=== PATIENT | female | born 2000 | race Caucasian/White ===

== ENCOUNTER 2018-08-22 13:50 | Emergency (ER) | payer SELFPAY ==
[~2018-08-22] VITALS: Ht 149.9 cm; Wt 66.5 kg
[2018-08-22 14:02] VITALS: BP 130/82; PULSE 83; RESP 16; Ht 149.9 cm; Wt 66.5 kg
== END 2018-08-22 16:35 | disposition left against medical advice (07) ==
LOC: FTE 13:50
DX: Z53.21 Procedure and treatment not carried out due to patient leaving prior to being seen by health care provider (principal)

== ENCOUNTER 2018-08-28 12:36 | Emergency (ER) | payer OTHER ==
[~2018-08-28] VITALS: Ht 149.9 cm; Wt 65.1 kg
[2018-08-28 12:47] VITALS: Ht 149.9 cm; Wt 65.1 kg
[2018-08-28] MEDS ORDERED: SOD CHLORIDE 0.9% 1,000 ML IV STA (13:36)
[2018-08-28] MEDS ORDERED: METOCLOPRAMIDE 10 MG INJ IV ONE (14:00)
[2018-08-28 16:51] VITALS: BP 111/63; PULSE 67; RESP 20
[2018-08-28] MEDS ORDERED: PROC10TA10 PR (16:57)
--- NOTE | 2018-08-28 17:17 | ERD ---
ER Documentation Chief Complaint Chief Complaint n/v x 5 days, 8wk , no vag bleed HPI This is a 17-year-old female who presents to the emergency room with complaint of nausea and vomiting x2 weeks. This is her first . States she has had close care as she has had intractable nausea since conception. No fevers, denies bleeding. She has had some diarrhea, vomiting her antiemetic pills. Patient alert and appropriate at time of assessment. OB Dr. Cramer. ROS All systems reviewed and are negative except as per history of present illness. Medications Home Meds Active Scripts Prochlorperazine* (Prochlorperazine*) 10 Mg Tablet, 25 MG [place] BID PRN for NAUSEA AND/OR VOMITING, #20 TAB Prov:OLGA KILPATRICK FAMILY DEVELOPMENT SPECIALIST 08/28/18 Allergies Allergies: Coded Allergies: Penicillins (Verified Allergy, Unknown, 08/22/18) amoxicillin (Verified Allergy, Unknown, 08/22/18) clavulanic acid (Verified Allergy, Unknown, 08/22/18) PMhx/Soc Medical and Surgical Hx: pt denies Surgical Hx History of Surgery: No Anesthesia Reaction: No Hx Neurological Disorder: No Hx Respiratory Disorders: No Hx Cardiac Disorders: Yes (HTN) Hx Psychiatric Problems: No Hx Miscellaneous Medical Probl: No Hx Alcohol Use: No Hx Substance Use: No Hx Tobacco Use: No Smoking Status: Never smoker Physical Exam Vitals Vital Signs Date Temp Pulse Resp B/P (MAP) Pulse Ox O2 O2 Flow FiO2 Time Delivery Rate 08/28/18 98.4 67 20 111/63 100 Room Air 16:51 (79) 08/28/18 98.3 83 18 155/68 100 12:47 (97) Physical Exam Const: No acute distress Head: Atraumatic Eyes: Normal Conjunctiva, PERRL ENT: Normal External Ears, Nose and Mouth. Neck: Full range of motion. No meningismus. Resp: Clear to auscultation bilaterally Cardio: Regular rate and rhythm, no murmurs Abd: Soft, tender +RLQ tenderness- no rebound, non distended. Normal bowel sounds Skin: No petechiae or rashes, skin warm/dry Back: No midline or flank tenderness Ext: No cyanosis, or edema Neur: Awake and alert Psych: Normal Mood and Affect Result Diagram: 08/28/18 1347 08/28/18 1347 Results 24 hrs Laboratory Tests Test 08/28/18 13:45 08/28/18 13:46 08/28/18 13:47 Bedside Urine pH (LAB) 7.0 Bedside Urine Protein (LAB) Trace Bedside Urine Glucose (UA) Negative Bedside Urine Ketones (LAB) 2+ Bedside Urine Blood Negative Bedside Urine Nitrite (LAB) Negative Bedside Urine Leukocyte Esterase Negative (L Urine Color YELLOW Urine Clarity CLEAR Urine pH 7.0 Urine Specific [place] 1.016 Urine Ketones 1+ mg/dL Urine Nitrite NEGATIVE mg/dL Urine Bilirubin NEGATIVE mg/dL Urine Urobilinogen NEGATIVE mg/dL Urine Leukocyte Esterase NEGATIVE Angelica/ul Urine Hemoglobin NEGATIVE mg/dL Urine Glucose NEGATIVE mg/dL Urine Total Protein NEGATIVE mg/dl White Blood Count 8.0 10^3/ul Red Blood Count 4.93 10^6/ul Hemoglobin 13.1 g/dl Hematocrit 40.5 % Mean Corpuscular Volume 82.2 fl Mean Corpuscular Hemoglobin 26.6 pg Mean Corpuscular 32.3 g/dl Hemoglobin Concent Red Cell Distribution Width 15.9 % Platelet Count 295 10^3/UL Mean Platelet Volume 10.4 fl Immature Granulocytes % 0.500 % Neutrophils % 68.4 % Lymphocytes % 22.8 % Monocytes % 7.7 % Eosinophils % 0.5 % Basophils % 0.1 % Nucleated Red Blood Cells % 0.0 /100WBC Immature Granulocytes # 0.040 10^3/ul Neutrophils # 5.5 10^3/ul Lymphocytes # 1.8 10^3/ul Monocytes # 0.6 10^3/ul Eosinophils # 0.0 10^3/ul Basophils # 0.0 10^3/ul Nucleated Red Blood Cells # 0.0 10^3/ul Sodium Level 138 mmol/L Potassium Level 3.7 mmol/L Chloride Level 102 mmol/L Carbon Dioxide Level 22 mmol/L Anion Gap 14 Blood Urea Nitrogen 5 mg/dl Creatinine 0.48 mg/dl Est Glomerular Filtrat > 60 mL/min Rate mL/min Glucose Level 85 mg/dl Calcium Level 9.7 mg/dl Total Bilirubin 0.5 mg/dl Direct Bilirubin 0.00 mg/dl Indirect Bilirubin 0.5 mg/dl Aspartate Amino 25 IU/L Transf (AST/SGOT) Alanine 17 IU/L Aminotransferase (ALT/SGPT) Alkaline Phosphatase 72 IU/L Total Protein 8.3 g/dl Albumin 4.7 g/dl Globulin 3.60 g/dl Albumin/Globulin Ratio 1.30 Beta HCG, Quantitative 07646.0 mIU/ml Current Medications Medications Dose Sig/Gurmeet Start Time Status Last (Trade) Ordered Route PRN Stop Time Admin Dose Reason Admin Sodium 1,000 ml @ Q1H STAT 08/28/18 DC 08/28/18 Chloride 1,000 mls/hr IV 13:36 08/28/18 13:50 14:35 10 mg ONCE ONCE 08/28/18 DC 08/28/18 Metoclopramid IV 14:00 08/28/18 13:49 e HCl 14:01 (Reglan) Procedures/MDM This is a 17-year-old female patient who presents to the emergency room with complaint of continued nausea and vomiting since conception of her first . She is denying concerning complaints for miscarriage such as bleed ing, cramping, severe pain. Primary concern is that she is unable to keep down solid food or liquids. The patient was stable throughout ED course. I kept the patient informed of laboratory and diagnostic imaging results throughout the ED course. DIAGNOSTIC IMAGING: FINDINGS: No blind ending tubular structure is seen. The appendix is not definitely visualized. No lymphadenopathy. No free fluid. IMPRESSION: Appendix not definitely visualized. Therefore, the diagnosis of appendicitis cannot be confidently included nor excluded. FINDINGS: A single intrauterine gestation is present. No evidence of extrauterine gestation. Mean sac diameter: 2.8 cm [place]-rump length: 1.31 cm heart rate: 163 Beats per minute Minimal subchorionic hemorrhage. Normal appearing ovaries. Free fluid: None. IMPRESSION: Single intrauterine gestation with an estimated gestational age of 7 weeks 5 days by ultrasound criteria. Minimal subchorionic hemorrhage. Read by radiologist. MEDICATIONS GIVEN: Normal saline 0.9% 1L, Reglan 10mg IV Patient tolerated medication well with no adverse reactions. Patient reported improvement nausea symptoms and overall sense of well-being after saline and Reglan. P.o. challenge successful. Patient able to consume full glass of water without any nausea or vomiting. Reassessment of vital signs show blood pressure within normal range. Patient states she feels better and is comfortable going home for follow-up with her irrigationist. She has been evaluated for dehydration, compromised , other abdominal etiology such as appendicitis, ovarian torsion, ruptured ovarian cyst, ectopic . Patient has been diagnosed with hyperemesis gravidarum as ultrasound is reassuring for progressing IUP, lab work does not indicate severe dehydration, anemia, infection. Ultrasounds to abdomen did not show any intra- abdominal abnormalities. Pain to right lower quadrant resolved after hydration and Reglan. Due to patient's pain and right lower quadrant ultrasound to examine for appendicitis was performed. The appendix was not visualized. Low suspicion for appendicitis as patient's pain resolved with ED treatment, no fevers, no longer with nausea or vomiting. Long discussion had with patient regarding hydration, nausea prevention, red flags and signs and symptoms to return immediately to the emergency department. She was provided with all diagnostic reports for follow-up with irrigationist. Departure Diagnosis: Primary Impression: Hyperemesis gravidarum before end of 22 week gestation with de... Condition: Stable Patient Instructions: Hyperemesis Gravidarum (Severe Morning Sickness) Additional Instructions: Thank you very much for allowing us to participate in your care. Your health and safety is our top priority at [facility]. Call your primary care doctor TOMORROW for an appointment during the next 2-3 days and bring all the information and medications prescribed. Have prescriptions filled and follow precisely the directions on the label. If the symptoms get worse and your provider is unavailable, return to the Emergency Department immediately. USE OF DICLEGIS: 2 PILLS AT TIME OF BED, IF THAT IS NOT EFFECTIVE, TAKE 2 PILLS AT BEDTIME AND ADD 1 IN AM, INCREASE TO 2 AT BEDTIME, 1 IN MORNING, 1 IN AFTERNOON IF NEEDED. USE [place] CHEWS NEEDED FOR NAUSEA. HAVE FREQUENT SIPS OF WATER. FREQUENTLY EAT SMALL MEALS. USE PROCHLORPERAZINE SUPPOSITORY NEEDED FOR UNRELENTING NAUSEA OR WITH VOMITING. RETURN TO THE ED FOR DEHYDRATION, NAUSEA, VOMITING, DIARRHEA FOLLOW-UP WITH YOUR OB IN 2-3 DAYS, BRING DIAGNOSTIC RESULTS AND NEW PRESCRIPTION. OLGA KILPATRICK NP Aug 28, 2018 17:17
== END 2018-08-28 17:16 | disposition home or self-care (01) ==
LOC: FTE 12:36
DX: O21.0 Mild hyperemesis gravidarum (principal); R10.2 Pelvic and perineal pain; O10.011 Pre-existing essential hypertension complicating pregnancy, first trimester; Z3A.01 Less than 8 weeks gestation of pregnancy
CPT/HCPCS: 36415; 76705; 76801; 80053; 81003; 84702; 85025; 96374; J2765; J7030; Z7502

== ENCOUNTER 2018-09-07 14:08 | Emergency (ER) | payer OTHER ==
[~2018-09-07] VITALS: Wt 64.0 kg
[~2018-09-07 14:08] MED LIST: PROC10TA10 PR
[2018-09-07 14:11] VITALS: BP 126/70; PULSE 68; RESP 18
[2018-09-07] MEDS ORDERED: SOD CHLORIDE 0.9% 1,000 ML IV STA (15:42)
[2018-09-07] MEDS ORDERED: METOCLOPRAMIDE 10 MG INJ IV ONE (16:00)
--- NOTE | 2018-09-07 16:54 | ERD ---
ER Documentation Chief Complaint Chief Complaint VAG BLEEDING SINCE THIS AM , 9 WKS PREG, NAUSEA AND VOMITING. FOR A FEW DAY HPI This is a 17-year-old female, presents at roughly 9 weeks with complaints of having a vaginal bleeding episode this morning. Patient states that she went to urinate she noticed blood. Patient is unsure if the blood was coming from the vagina or the urethra. Admits to having nausea with multiple episodes of nonbilious nonbloody vomiting. Patient states that she is currently on antibiotics prescribed by her MEDICAL ATTENDANT for a UTI. patient is unsure what antibiotic she is on. Patient saw her MEDICAL ATTENDANT specialist earlier today and was sent to the emergency room to get IV fluids. Patient's OB is lorenzo kan at [facility]. Denies hematemesis, diarrhea, con stipation, dysuria, hematuria, dizziness, lightheadedness, headache and all other symptoms. ROS All systems reviewed and are negative except as per history of present illness. Medications Home Meds Active Scripts Prochlorperazine* (Prochlorperazine*) 10 Mg Tablet, 25 MG [place] BID PRN for NAUSEA AND/OR VOMITING, #20 TAB Prov:OLGA KILPATRICK FIELD APPLICATION ENGINEER 08/28/18 Allergies Allergies: Coded Allergies: Penicillins (Verified Allergy, Unknown, 08/22/18) amoxicillin (Verified Allergy, Unknown, 08/22/18) clavulanic acid (Verified Allergy, Unknown, 08/22/18) PMhx/Soc Medical and Surgical Hx: pt denies Medical Hx, pt denies Surgical Hx History of Surgery: No Anesthesia Reaction: No Hx Neurological Disorder: No Hx Respiratory Disorders: No Hx Cardiac Disorders: Yes (HTN) Hx Psychiatric Problems: No Hx Miscellaneous Medical Probl: No Hx Alcohol Use: No Hx Substance Use: No Hx Tobacco Use: No Smoking Status: Never smoker Physical Exam Vitals Vital Signs Date Temp Pulse Resp B/P (MAP) Pulse Ox O2 O2 Flow FiO2 Time Delivery Rate 09/07/18 98.3 68 18 126/70 98 14:11 (88) Physical Exam Physical Exam Vitals signs: Reviewed by me. General: Well developed, well nourished, in no acute distress. Patient is awake and alert. Head: Normocephalic, atraumatic. Eyes: Normal conjunctiva, Pupils PERRLA, EOM intact grossly ENT: Pharynx is clear, Moist mucous membranes, external ears, nose and mouth normal Neck: Supple, no masses, lymphadenopathy or JVD Respiratory: Clear to auscultation bilaterally with no wheezing, rhonchi, rales, no distress Cardiovascular: RRR, no murmurs, rubs, or gallops Abdominal: , soft, no peritoneal signs, no rigidity, no surgical abd omen, bowel sounds present all 4 quadrants, nontender light deep palpation all 4 quadrants, no rebound tenderness, McBurney's point nontender Neurologic: Alert and oriented, moving all extremities, normal speech, no focal weakness, no cerebellar signs. Normal mentation Skin: warm and dry, No rash Psych: Normal mood Result Diagram: 09/07/18 1633 09/07/18 1633 Results 24 hrs Laboratory Tests Test 09/07/18 15:59 09/07/18 16:32 09/07/18 16:33 POC Beta HCG, Qualitative POSITIVE Urine Color YELLOW Urine Clarity SLIGHTLY CLOUDY Urine pH 6.0 Urine Specific [place] 1.026 Urine Ketones 2+ mg/dL Urine Nitrite NEGATIVE mg/dL Urine Bilirubin NEGATIVE mg/dL Urine Urobilinogen 1+ mg/dL Urine Leukocyte Esterase NEGATIVE Angelica/ul Urine Microscopic RBC 2 /HPF Urine Microscopic WBC 2 /HPF Urine Squamous Epithelial Cells MODERATE /HPF Urine Mucus MANY /HPF Urine Hemoglobin NEGATIVE mg/dL Urine Glucose NEGATIVE mg/dL Urine Total Protein NEGATIVE mg/dl White Blood Count 10.8 10^3/ul Red Blood Count 4.63 10^6/ul Hemoglobin 12.6 g/dl Hematocrit 37.9 % Mean Corpuscular Volume 81.9 fl Mean Corpuscular Hemoglobin 27.2 pg Mean Corpuscular 33.2 g/dl Hemoglobin Concent Red Cell Distribution Width 15.5 % Platelet Count 292 10^3/UL Mean Platelet Volume 10.1 fl Immature Granulocytes % 0.500 % Neutrophils % 74.6 % Lymphocytes % 18.5 % Monocytes % 5.9 % Eosinophils % 0.3 % Basophils % 0.2 % Nucleated Red Blood Cells % 0.0 /100WBC Immature Granulocytes # 0.050 10^3/ul Neutrophils # 8.1 10^3/ul Lymphocytes # 2.0 10^3/ul Monocytes # 0.6 10^3/ul Eosinophils # 0.0 10^3/ul Basophils # 0.0 10^3/ul Nucleated Red Blood Cells # 0.0 10^3/ul Sodium Level 138 mmol/L Potassium Level 3.6 mmol/L Chloride Level 105 mmol/L Carbon Dioxide Level 21 mmol/L Anion Gap 12 Blood Urea Nitrogen 7 mg/dl Creatinine 0.50 mg/dl Est Glomerular Filtrat > 60 mL/min Rate mL/min Glucose Level 78 mg/dl Calcium Level 9.9 mg/dl Total Bilirubin 0.6 mg/dl Direct Bilirubin 0.00 mg/dl Indirect Bilirubin 0.6 mg/dl Aspartate Amino 21 IU/L Transf (AST/SGOT) Alanine 13 IU/L Aminotransferase (ALT/SGPT) Alkaline Phosphatase 71 IU/L Total Protein 8.1 g/dl Albumin 4.6 g/dl Globulin 3.50 g/dl Albumin/Globulin Ratio 1.31 Beta HCG, Quantitative 048145.0 mIU/ml Current Medications Medications Dose Sig/Gurmeet Start Time Status Last (Trade) Ordered Route PRN Stop Time Admin Dose Reason Admin Sodium 1,000 ml @ Q1H STAT 09/07/18 DC 09/07/18 Chloride 1,000 mls/hr IV 15:42 16:37 09/07/18 16:41 10 mg ONCE ONCE 09/07/18 DC 09/07/18 Metoclopramid IV 16:00 16:39 e HCl 09/07/18 16:01 (Reglan) Procedures/MDM EKG, MONITORS, & DIAGNOSTIC IMAGING: [place] [id number] Radiology Main Line: [phone] DIAGNOSTIC IMAGING REPORT Patient: GERONIMO BELLO : 2000 Age: 17 Sex: F MR #: [id number] DOS: 09/07/18 1542 Ordering MD: JAYLENE COLINDRES PA-C Location: [facility] Room/Bed: PROCEDURE: US OB. CLINICAL INDICATION: Pelvic pain TECHNIQUE: Transabdominal views of the pelvis are available for review. COMPARISON: US PELVIS 08/28/2018 FINDINGS: There is a single intrauterine gestation with crown rump length of 2.25 cm. The heart rate is noted at 179 bpm. Small subchorionic hemorrhage measuring 2.0 x 0.9 cm. The ovaries are normal in size and echogenicity. There is no free fluid. Measurements (cm): Right Ovary: 2.8 x 1.9 x 1.2 Left Ovary: 3.4 x 2.1 x 2.1 IMPRESSION: Single live intrauterine with an estimated gestational age of 8 weeks 5 days, based on ultrasound measurements. Estimated date of delivery is 04/14/2019. Small subchorionic hemorrhage. RPTAT: PP Physician Salvador Date Time Electronically viewed and signed by Kika Hudson Physician on 09/07/2018 16:53 ME/ CC: JAYLENE COLINDRES PA-C [id number] LAB INTERPRETATION: CBC shows no evidence of hemorrhage or infection Chemistry shows no evidence of significant electrolyte abnormalities or renal insufficiency Liver function test shows no evidence of acute biliary or hepatic dysfunction Urine positive Urinalysis shows 2 RBCs, 2 WBCs, no leukocyte esterase and no nitrite HCG [id number] ER COURSE: The patient was given IV fluids and Reglan The medication was well tolerated and the patient reports improvement in symptoms. The patient was stable throughout ED course. I kept the patient and/or family informed of laboratory and diagnostic imaging results throughout the emergency room course. The patient was promptly evaluated and a treatment plan was devised based on H&P and other data. This plan was discussed with the patient who agreed and had no further questions or concerns prior to discharge. MEDICAL DECISION MAKING: This is a 17 year-old female, G 2 P 0010, who presents with vaginal bleeding at roughly 9 weeks . Patient was seen at her OB office earlier today but was advised to go to the emergency room to get IV fluids. Patient was given IV fluids in the emergency department as well as Reglan reports resolution of nausea and vomiting. Patient has not had any episodes of vomiting in the emergency department today. Patient is currently on antibiotics for a UTI that were prescribed by her OB practitioner. Ultrasound confirms an intrauterine . Ectopic not visualized. Patient is O+ and does not req uire any rhogam. She is hemodynamically stable. Patient will need to repeat quantitative hCG in the next 48-72 days to show a upward trend. Advise for patient either return to the ER for repeat quantitative hCG or to follow-up with her MEDICAL ATTENDANT doctor for this. At this time there is no MEDICAL ATTENDANT emergency. Advised to return to ER with any worsening symptoms. DISPOSITION PLAN: We discussed follow up with the patient's primary care doctor within 24 to 48 hours. Patient counseled regarding my diagnostic impression and care plan. Prior to discharge all questions answered. Pt agrees with treatment plan and understands strict return precautions. Precautionary instructions provided including instructions to return to the ER if not improving or for any worsening or changing symptoms or concerns. SPECIALIST FOLLOW UP RECOMMENDED: obgyn Patient has been advised to follow up with primary care in 1-2 days. Disclaimer: Inadvertent spelling and grammatical errors are likely due to EHR/dictation software use and do not reflect on the overall quality of patient care. Also, please note that the electronic time recorded on this note does not necessarily reflect the actual time of the patient encounter. Departure Diagnosis: Primary Impression: Vaginal bleeding in patient at less than 20 weeks gestation Additional Impression: Hyperemesis gravidarum before end of 22 week gestation with dehydration Condition: Stable Patient Instructions: Bleeding During Early , Hyperemesis Gravidarum (Severe Morning Sickness) Referrals: [facility] MEDICAL ATTENDANT REFERRAL LIST Additional Instructions: Patient advised to return to the ED immediately for new or worsening symptoms. Patient advised to follow up with primary care provider in the next 24-48 hours. Patient verbalized understanding and agrees with treatment plan and course of action. If patient has no primary care they may follow up with one of the community clinics listed on the following page or one of the options listed below [facility] [address] [place] [id number] or [facility] [address] [place] [address] or [facility] [address] [place] [address] JAYLENE COLINDRES PA-C Sep 07, 2018 16:53
== END 2018-09-07 18:45 | disposition home or self-care (01) ==
LOC: FTE 14:08
DX: O20.9 Hemorrhage in early pregnancy, unspecified (principal); O21.0 Mild hyperemesis gravidarum; O10.011 Pre-existing essential hypertension complicating pregnancy, first trimester; R10.2 Pelvic and perineal pain; Z3A.08 8 weeks gestation of pregnancy
CPT/HCPCS: 76801; 80053; 81001; 81025; 84702; 85025; 86900; 86901; 96361; 96374; J2765; J7030; Z7502; 81003

== ENCOUNTER 2018-09-29 12:16 | Emergency (ER) | payer OTHER ==
[~2018-09-29] VITALS: Ht 149.9 cm; Wt 65.0 kg
[2018-09-29 12:33] VITALS: Ht 149.9 cm; Wt 65.0 kg
--- NOTE | 2018-09-29 13:10 | ERD ---
ER Documentation Chief Complaint Chief Complaint VAGINAL BLEEDING - LMP 07/08/18; RLQ PAIN HPI 17-year-old female, presents the emergency department, complaining of vaginal bleeding. The patient has EGA at 11 weeks and 1 day by ultrasound on 09/17/2018. The patient denies abdominal pain, no fever, no chills, no urinary symptoms, no diarrhea or constipation. ROS All systems reviewed and are negative except as per history of present illness. Medications Home Meds Active Scripts Acetaminophen* (Tylenol*) 325 Mg Tablet, 2 TAB PO Q6 PRN for PAIN AND OR ELEVATED TEMP, #20 TAB Prov:NEETA WEI MD 09/29/18 Prochlorperazine* (Prochlorperazine*) 10 Mg Tablet, 25 MG IN BID PRN for NAUSEA AND/OR VOMITING, #20 TAB Prov:OLGA KILPATRICK NP 08/28/18 Allergies Allergies: Coded Allergies: Penicillins (Verified Allergy, Unknown, 08/22/18) amoxicillin (Verified Allergy, Unknown, 08/22/18) clavulanic acid (Verified Allergy, Unknown, 08/22/18) PMhx/Soc History of Surgery: No Anesthesia Reaction: No Hx Neurological Disorder: No Hx Respiratory Disorders: No Hx Cardiac Disorders: Yes (HTN) Hx Psychiatric Problems: No Hx Miscellaneous Medical Probl: No Hx Alcohol Use: No Hx Substance Use: No Hx Tobacco Use: No FmHx Family History: No diabetes, No coronary disease Physical Exam Vitals Vital Signs Date Temp Pulse Resp B/P (MAP) Pulse Ox O2 O2 Flow FiO2 Time Delivery Rate 09/29/18 98.0 78 18 136/79 100 Room Air 15:38 (98) 09/29/18 99.1 95 19 137/80 98 12:33 (99) Physical Exam Const: No acute distress Head: Atraumatic Eyes: Normal Conjunctiva ENT: Normal External Ears, Nose and Mouth. Neck: Full range of motion. No meningismus. Resp: Clear to auscultation bilaterally Cardio: Regular rate and rhythm, no murmurs Abd: Soft, non tender, non distended. Normal bowel sounds Skin: No petechiae or rashes Back: No midline or flank tenderness Ext: No cyanosis, or edema Neur: Awake and alert Psych: Normal Mood and Affect Result Diagram: 09/29/18 1326 Results 24 hrs Laboratory Tests Test 09/29/18 13:26 09/29/18 15:05 White Blood Count 8.8 10^3/ul Red Blood Count 4.56 10^6/ul Hemoglobin 12.7 g/dl Hematocrit 37.2 % Mean Corpuscular Volume 81.6 fl Mean Corpuscular Hemoglobin 27.9 pg Mean Corpuscular Hemoglobin Concent 34.1 g/dl Red Cell Distribution Width 14.8 % Platelet Count 275 10^3/UL Mean Platelet Volume 9.9 fl Immature Granulocytes % 0.300 % Neutrophils % 71.6 % Lymphocytes % 22.1 % Monocytes % 5.6 % Eosinophils % 0.2 % Basophils % 0.2 % Nucleated Red Blood Cells % 0.0 /100WBC Immature Granulocytes # 0.030 10^3/ul Neutrophils # 6.3 10^3/ul Lymphocytes # 1.9 10^3/ul Monocytes # 0.5 10^3/ul Eosinophils # 0.0 10^3/ul Basophils # 0.0 10^3/ul Nucleated Red Blood Cells # 0.0 10^3/ul Beta HCG, Quantitative 81485.0 mIU/ml Bedside Urine pH (LAB) 6.0 Bedside Urine Protein (LAB) Negative Bedside Urine Glucose (UA) Negative Bedside Urine Ketones (LAB) Negative Bedside Urine Blood Trace-intact Bedside Urine Nitrite (LAB) Negative Bedside Urine Leukocyte Esterase (L Negative Current Medications Medications Dose Sig/[place] Start Time Status Last (Trade) Ordered Route PRN Stop Time Admin Dose Reason Admin 650 mg ONCE ONCE 09/29/18 DC 09/29/18 Acetaminophen PO 15:00 09/29/18 15:06 (Tylenol 15:01 Tab) Patient: GERONIMO BELLO : 2000 Age: 17 Sex: F MR #: [id number] DOS: 09/29/18 1313 Ordering MD: NEETA WEI MD Location: [facility] Room/Bed: PROCEDURE: US OB. CLINICAL INDICATION: Vaginal bleeding TECHNIQUE: Transabdominal views of the pelvis are available for review. COMPARISON: US PELVIS 09/07/2018 FINDINGS: There is a single intrauterine gestation with the crown-rump length measuring 6.0 cm, corresponding to a gestational age of 12 weeks and 4 days. The heart rate is noted at 161 bpm. The ovaries are normal in size and echogenicity. Normal Doppler flow is identified in both ovaries. The right ovary measures 3.9 x 1.6 x 2.3 cm. The left ovary measures 3.1 x 1.9 x 1.9 cm. There is no free fluid. RPTAT: AA IMPRESSION: Single live intrauterine with an estimated gestational age of 12 weeks and 4 days, based on ultrasound measurements. BETINA based on ultrasound measurements is 04/09/19. Procedures/MDM Vital signs stable, Physical exam unremarkable. Differential diagnosis include but not limited to: UTI, threatening , incomplete versus complete , ectopic , physiologic implantation bleeding, molar . Physical examination and clinical presentation most likely consistent with threatening . During the ED course the patient remained hemodynamically stable and asymptomatic. Results and clinical impression discussed with patient who agrees with management. The patient is stable to be treated outpatient and will be discharged home with close monitoring and follow-up in 2 days with her primary physician. Bed rest and pelvic rest recommended until further medical evaluation. The patient was instructed regarding the outcomes and the potential complications like severe bleeding and . If the patient presents severe bleeding or pain, she was instructed to return to the hospital immediately. Disclaimer: Inadvertent spelling and grammatical errors are likely due to EHR/dictation software use and do not reflect on the overall quality of patient care. Also, please note that the electronic time recorded on this note does not necessarily reflect the actual time of the patient encounter. Departure Diagnosis: Primary Impression: Vaginal bleeding in patient at less than 20 weeks gestation Additional Impression: Threatened in second trimester Condition: Stable Patient Instructions: Bleeding During Early Additional Instructions: Thank you very much for allowing us to participate in your care. Your health and safety is our top priority at [facility]. Call your primary care doctor TOMORROW for an appointment during the next 2-4 days and bring all the information provided. Have prescriptions filled and follow precisely the directions on the label. If the symptoms get worse and your provider is unavailable, return to the Emergency Department immediately. NEETA WEI MD September 29, 2018 13:10
[2018-09-29] MEDS ORDERED: ACETAMINOPHEN 325 MG TAB PO ONE (15:00)
[2018-09-29] MEDS ORDERED: ACET325T33 PO (15:12)
[2018-09-29 15:38] VITALS: BP 136/79; PULSE 78; RESP 18
== END 2018-09-29 15:40 | disposition home or self-care (01) ==
LOC: FTE 12:16
DX: O20.0 Threatened abortion (principal); O10.011 Pre-existing essential hypertension complicating pregnancy, first trimester; Z3A.12 12 weeks gestation of pregnancy
CPT/HCPCS: 36415; 76801; 81003; 84702; 85025; Z7502; Z7610

== ENCOUNTER 2018-11-23 23:30 | Outpatient (CLI) | payer OTHER ==
[~2018-11-23] VITALS: Ht 149.9 cm; Wt 69.7 kg
[~2018-11-23 23:30] MED LIST changes: +ACET325T33 PO
[2018-11-23 23:57] VITALS: Ht 149.9 cm; Wt 69.7 kg
[2018-11-24] MEDS ORDERED: PREN-6 PO
[2018-11-24] MEDS ORDERED: LABE100T7 PO
--- NOTE | 2018-11-24 02:57 | TRIAGE ---
OB Triage Datetime Report Generated by CPN: 11/24/2018 02:56 Datetime: 11/24/2018 02:10 Stage of : OB Triage Datetime: 11/24/2018 00:30 Stage of : OB Triage Temperature Route: Oral Labor Evaluation Frequency: 0 Monitor Mode: External Pattern: Normal: <= 5 Contractions in 10 Minutes Resting Tone [place]: Relaxed Heart Rate FHR Baseline Rate: 150 Monitor Mode: Doppler Datetime: 11/24/2018 00:03 Time of Arrival: 11/23/2018 23:30 EGA: 23.0 Arrived By: Wheelchair Arrived From: Home Chief Complaint: RT. ABD PAIN (HAD WHEN HAD UTI 2 WEEKS AGO, COMPLETED KEFLEX 1 WEEK AGO, BUT PAIN NEVER WENT AWAY) Movement: Present Contractions: Denies/Absent Rupture of Membranes: Denies Vaginal Discharge: Denies Recent Sexual Intercouse: Denies Time Provider Notified: 11/24/2018 00:12 Provider Notified: DELONTE Initial Plan: DOPPLER, TOCO, ASSESMENT, CALL MD FOR ORDERS, UA , URINE CULTURE, CHERYL, CL Datetime: 11/23/2018 23:50 Assessment Type: Triage Maternal Assessment Level of Consciousness: Keenly Alert, Responsive DTR's/Clonus: DTRs 2+; No Clonus Headache: Denies Blurred Vision: No Respiratory Effort: Unlabored; Regular Rhythm; Equal Expansion Breath Sounds, Left: Clear and Equal Breath Sounds, Right: Clear and Equal Nausea/Vomiting: Denies RUQ Epigastric Pain: Denies Lower Extremities Edema: None Upper Extremities Edema: None Facial Edema: None Fall Risk Assessment History of Falling: (0) No Secondary Diagnosis: (0) No Ambulatory Aid: (0) Bedrest/Nurse Assist IV Therapy: (0) No Gait: (0) Normal/Bedrest/Immobile Mental Status: (0) Oriented to Own Ability Fall Score: 0 Fall Risk Score Definition: No Risk: No action required
--- NOTE | 2018-11-24 06:52 | PN ---
Triage Information Date/Time Reason for visit: Abd/pelvic pain Weeks of Gestation 17-year-old 2 para 0 at 23 weeks and 1 day of gestation with estimated date of delivery March 22, 2019 Patient presents with chief complaint of abdominal pain She reports a history of UTIs during this which she took Keflex for it Patient's history significant for chronic hypertension and currently on labetalol 100 mg p.o. 3 times daily Patient reports positive movement, denies vaginal bleeding and leaking fluid /Para 2 para 0 Diabetes: none Hypertention: essential (On labetalol 100 mg p.o. 3 times daily) Objective Heart Rate: 140's Heart Rate Comments heart rate appropriate for gestational age Contractions: None Results/Medications Results 24 hrs Laboratory Tests Test 11/23/18 23:40 Urine Color YELLOW Urine Clarity CLOUDY A Urine pH 6.0 Urine Specific [place] 1.027 Urine Ketones NEGATIVE Urine Nitrite NEGATIVE Urine Bilirubin NEGATIVE Urine Urobilinogen NEGATIVE Urine Leukocyte Esterase 2+ H Urine Microscopic RBC 3 Urine Microscopic WBC 9 H Urine Squamous Epithelial Cells MANY A Urine Bacteria FEW A Urine Mucus FEW A Urine Hemoglobin NEGATIVE Urine Glucose NEGATIVE Urine Total Protein NEGATIVE Imaging Results Ordering MD: BASHIR MARTEL MD Location: [facility] Room/Bed: PROCEDURE: CERVICAL LENGTH ULTRASOUND CLINICAL INDICATION: Decreased motion. TECHNIQUE: Trans-vaginal imaging of the cervical canal was performed utilizing contreras-scale imaging. Sagittal and transverse images were obtained. Trans- abdominal images were also obtained. Amniotic fluid was evaluated. The images were reviewed on a PACS workstation. COMPARISON: None. FINDINGS: There is a single live intrauterine . heart rate is 150 beats per minute. Position is breech and placenta is posterior grade 1. There is no placenta previa. The cervix is closed with a length of 4.1 cm. Maximum vertical pocket of amniotic fluid is 6.2 cm. IMPRESSION: 1. Cervical length is centimeter. 2. Maximum vertical pocket of amniotic fluid is 6.2 cm. RPTAT: QQ .José Miguel Mcgill MD, MD Date Time Electronically viewed and signed by .José Miguel Mcgill MD, on 11/24/2018 02:05 .R/ CC: BASHIR MARTEL MD [id number] Disposition: Discharge Assessment/Plan Urinalysis consistent with UTI- prescription for Macrobid was given Urine culture was sent Patient instructed to increase p.o. hydration Patient instructed to follow-up with [facility] in 1 to 2 days BASHIR MARTEL MD Nov 24, 2018 06:52
== END 2018-11-24 02:27 | disposition home or self-care (01) ==
LOC: L-D 23:30 → OBT 23:30
PROVIDERS: ATTEND Obstetrics & Gynecology Gynecology
DX: O26.892 Other specified pregnancy related conditions, second trimester (principal); R10.9 Unspecified abdominal pain; Z3A.23 23 weeks gestation of pregnancy
CPT/HCPCS: 76815; 76817; 81001; 87086; Z7500; G0463

== ENCOUNTER 2018-12-01 14:08 | Inpatient (IN) | payer MEDICAID, OTHER ==
[~2018-12-01] VITALS: Ht 149.9 cm; Wt 70.5 kg
[~2018-12-01 14:08] MED LIST changes: -ACET325T33 PO; +LABE100T7 PO; +PREN-6 PO; -PROC10TA10 PR
[2018-12-01 14:38] VITALS: Ht 149.9 cm; Wt 70.5 kg
--- NOTE | 2018-12-01 14:44 | HP ---
Date/Time of Note Date/Time of Note DATE: 12/01/18 TIME: 14:42 OB - History Hx of Present Free Text/Dictation 24+ with +CVA tenderness pyelonephritis : 2 Para: 1 Care: Good Care Ultrasounds: Normal mid trimester US Obstetrical Complications: None Medical Complications: None Past Family/Social History * Past Medical, Surgical, Family and Obstetric Histories reviewed from chart. OB Admission Exam Physical Exam Abdomen: WNL Extremities: Normal Membranes: Intact Heart Rate: 140's Accelerations: Accelerations Present Decelerations: No Decelerations Varibility: Moderate Contractions on Admission: None OB Assessment/Plan Reason for admission: observation Other Assessment: PMH Denies PSH Denies Plan: Expectant Management Other plan: IV Antibiotics Kidney Ultrasound IV hydration MIRIAM HUYNH M.D. Dec 01, 2018 14:44
[2018-12-01] MEDS: LACTATED RINGER'S 1,000 ML IV SCH ×3 (16:27→23:55)
[2018-12-01] MEDS: GENTAMICIN 80 MG/NS (PMX) 50 ML IVPB SCH ×2 (16:31→23:55)
[2018-12-01] MEDS: ACETAMINOPHEN 325 MG TAB PO PRN (19:37)
[2018-12-02] MEDS: GENTAMICIN 80 MG/NS (PMX) 50 ML IVPB SCH ×3 (08:01→23:12)
[2018-12-02] MEDS: LACTATED RINGER'S 1,000 ML IV SCH ×3 (08:02→23:12)
[2018-12-02] MEDS: PRENATAL VITAMIN PO SCH (09:06)
[2018-12-02] MEDS: FERROUS SULFATE (EC) 325 MG TAB PO SCH (09:06)
[2018-12-02] MEDS ORDERED: HYDROCODONE/APAP (10/325) TAB PO ONE (10:30)
[2018-12-02] MEDS: ONDANSETRON 4 MG INJ IV PRN (10:35)
--- NOTE | 2018-12-02 15:42 | PN ---
Date/Time of Note Date/Time of Note DATE: 12/02/18 TIME: 15:38 OB Subjective Subjective Subjective Date of admission: 12/01 2018 patient seen and examined. She states good movement. She denies nausea, vomiting, shortness of breath, chest pain, headache, visual changes, vaginal bleeding or LOF. OB Objective Objective Objective General: Patient appears well, alert and oriented, NAD, appropriate mood and affect ABD: gravid, soft, non-tender Back: No CVA tenderness (B/L) LE: Mild edema. No clubbing, cyanosis, edema, thigh or calf tenderness bilaterally FHT: 135 bpm , moderate variability with acceleration, no deceleration-category I Contractions: None OB Assessment/Plan Other plan: 18 years old 2 para 0-0-1-0 with single intrauterine at 24 weeks and 2 days with BETINA of 03/22/2019 with pyelonephritis - FHR: Reassuring. No sign of metabolic acidosis- Category I - NST every 8 hours - Check intake and output - She is allergic to penicillin, causes shortness of breath. She is currently on gentamicin 80 mg every 8 hours IV. - Urine culture is pending - Continue current management DEVYN MACEDO Dec 02, 2018 15:42
[2018-12-02] MEDS: ACETAMINOPHEN 325 MG TAB PO PRN (19:43)
[2018-12-03] MEDS: ACETAMINOPHEN 325 MG TAB PO PRN ×2 (00:13→20:26)
[2018-12-03] MEDS: GENTAMICIN 80 MG/NS (PMX) 50 ML IVPB SCH (06:12)
[2018-12-03] MEDS: LACTATED RINGER'S 1,000 ML IV SCH ×2 (06:12→18:43)
[2018-12-03] MEDS ORDERED: NA PHOSPHATE/BIPHOS 133 ML ENEMA PR ONE (09:30)
[2018-12-03] MEDS: FERROUS SULFATE (EC) 325 MG TAB PO SCH (10:08)
[2018-12-03] MEDS: PRENATAL VITAMIN PO SCH (10:08)
[2018-12-03] MEDS: DOCUSATE SODIUM 100 MG CAP PO SCH ×2 (10:20→20:27)
[2018-12-03] MEDS ORDERED: ACETAMINOPHEN 1000MG/100ML IV 100 ML IVPB SCH (10:30)
[2018-12-03] MEDS: ONDANSETRON 4 MG INJ IV PRN (11:28)
[2018-12-03] MEDS ORDERED: CYCLOBENZAPRINE 10 MG TAB PO PRN (14:00)
--- NOTE | 2018-12-03 17:37 | QN ---
Documentation Comment Patient still complaining of flank pain in the right side. Denies any pelvic pressure, leaking of fluid, vaginal bleeding contractions or decreased movement. Denies any fever or chills. Denies any urinary symptoms. Physical examination: General appearance: Alert and oriented x4 appears to be in moderate distress due to right flank pain Abdomen: Soft, gravid, fundal height correlate with gestational age Right CVA tenderness noted NST: Normal heart tone, no contraction on the monitor noted PROCEDURE: US OB AND ULTRASOUND CERVIX. CLINICAL INDICATION: Flank pain TECHNIQUE: Multiple sonographic images of the pelvis and gravid uterus were obtained. The images were reviewed on a PACS workstation. Transvaginal images of the cervix were also obtained. COMPARISON: No prior studies are available for comparison. FINDINGS: Cervix: Length: 4.5 cm. Small amount of fluid in the cervix measuring 4 mm in thickness. Gestation: Single live intrauterine gestation. Cardiac activity: 150 beats per minute. Presentation: Breech Placenta: Location: Posterior Appearance: No previa or abruption. MVP = 5.6 cm Measurements: BPD = 5.0 cm, 21 weeks and 1 day HC = 18.7 cm, 21 weeks and 0 days AC = 17.5 cm, 22 weeks and 3 days FL = 3.5 cm, 21 weeks and 0 days Gestational Age: AUA estimated gestational age: 21 weeks 3 days LMP estimated gestational age: 24 weeks 1 day AUA estimated date of delivery: 04/10/19 The EFW = 444 g, <3%ile based on LMP age. RPTAT: AA IMPRESSION: Single live intrauterine gestation of approximately 21 weeks and 3 days based on ultrasound measurements. Small amount of fluid within the cervix. .Keyur Ho MD, MD Date Time Electronically viewed and signed by .Keyur Ho MD, MD on 12/01/2018 1 5:08 .S/ CC: MIRIAM HUYNH M.D. [id number] PROCEDURE: Retroperitoneal US. CLINICAL INDICATION: Flank pain TECHNIQUE: Multiple sonographic images of the kidneys and retroperitoneum were obtained. The images were reviewed on a PACS workstation. COMPARISON: No prior studies are available for comparison. FINDINGS: The kidneys are normal in size, contour, cortical thickness and cortical echogenicity. The right kidney measures 11 cm. The left kidney measures 10.8 cm. No kidney stones are visualized. There is no evidence for hydronephrosis. The urinary bladder is normal. RPTAT: AA IMPRESSION: Unremarkable retroperitoneal ultrasound. Assessment: IUP at 22 weeks Right flank pain, renal ultrasound normal. Has been receiving treatment with ampicillin and gentamicin for presumed pyelonephritis Urine culture with mixed growth Right flank pain appears to be musculoskeletal No evidence of labor or PPROM, cervical length: 4 cm Consider muscle relaxant, Flexeril ordered Continue toco Repeat CBC, urine culture follow-up Plan of care discussed with СЕРГЕЙ MUIR MD Dec 03, 2018 17:37
[2018-12-03] MEDS ORDERED: metroNIDAZOLE 500 MG TAB PO SCH (18:00)
[2018-12-03] MEDS ORDERED: MICONAZOLE 2% 45 GM VAG CR VAG SCH (21:00)
[2018-12-04] MEDS: PRENATAL VITAMIN PO SCH (10:05)
[2018-12-04] MEDS: DOCUSATE SODIUM 100 MG CAP PO SCH (10:06)
[2018-12-04] MEDS: ACETAMINOPHEN 325 MG TAB PO PRN (10:13)
--- NOTE | 2018-12-04 12:01 | QN ---
Documentation Comment Symptoms improved VS stable Gen NAD Abd soft NT ND +Right CVA tenderness Culture Mixed gram+ --->Continue Antibiotics --->Perinatology consult MIRIAM HUYNH M.D. Dec 04, 2018 12:01
[2018-12-04] MEDS ORDERED: LACTATED RINGER'S 1,000 ML IV SCH (14:00)
[2018-12-04] MEDS ORDERED: GENTAMICIN 80 MG/NS (PMX) 50 ML IVPB SCH (14:00)
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
--- NOTE | 2018-12-04 18:38 | DS ---
Date/Time of Note Date/Time of Note DATE: 12/04/18 TIME: 18:36 Discharge Summary Admission/Discharge Info Admit Date/Time Dec 01, 2018 at 14:30 Discharge Date/Time 12/04/2018 Discharge Diagnosis pyelonephritis Patient Condition: Good Hospital Course Patient's mother signs herself out and signed AMA uneventful Home Meds Reported Medications Vits #93-Iron Fum-FA ( Formula) 1 Each Tablet, 1 TAB PO DAILY, TAB 11/24/18 Labetalol Hcl* (Labetalol Hcl*) 100 Mg Tablet, 100 MG PO BID, TAB 11/24/18 Primary Care Provider Didier Armenta MD Pending Labs Laboratory Tests Test 12/03/18 20:00 Rapid Plasma Reagin NONREACTIVE (NR) MIRIAM HUYNH M.D. Dec 04, 2018 18:38
[2018-12-05] MEDS ORDERED: CYCL5TAB PO (10:20)
== END 2018-12-04 19:08 | disposition left against medical advice (07) | DRG 833 ==
LOC: OBT 14:08 → L-D 14:09 → OBT 14:30 → PP1 14:30
PROVIDERS: ADMIT Obstetrics & Gynecology; ATTEND Obstetrics & Gynecology
DX: O23.02 Infections of kidney in pregnancy, second trimester (principal); Z3A.22 22 weeks gestation of pregnancy
CPT/HCPCS: 76775; 76815; 76817; 80307; 81003; 85025; 86592; 87086; 87110; 87210; A4310; G0463; J0131; J1580; J2405; J7120

== ENCOUNTER 2018-12-04 22:17 | Inpatient (IN) | payer MEDICAID ==
[~2018-12-04] VITALS: Ht 149.9 cm; Wt 71.4 kg
[2018-12-04 23:41] VITALS: Ht 149.9 cm; Wt 71.4 kg
[2018-12-05] MEDS ORDERED: ONDANSETRON 4 MG INJ IV PRN
[2018-12-05] MEDS ORDERED: HYDROCODONE/APAP (5/325) TAB PO PRN
[2018-12-05] MEDS: GENTAMICIN 80 MG/NS (PMX) 50 ML IVPB SCH ×2 (02:00→09:08)
[2018-12-05] MEDS: LACTATED RINGER'S 1,000 ML IV SCH ×2 (02:24→09:09)
[2018-12-05] MEDS ORDERED: ACETAMINOPHEN 1000MG/100ML IV 100 ML IVPB PRN (04:00)
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
[2018-12-05] MEDS ORDERED: metroNIDAZOLE 500 MG TAB PO SCH ×2 (06:00)
--- NOTE | 2018-12-05 07:30 | TRIAGE ---
OB Triage Datetime Report Generated by CPN: 12/05/2018 07:29 Datetime: 12/05/2018 06:05 Temperature Route: Oral Pain Assessment Pain Scale: 2 Pain Presence: Constant Pain Type: Ache Pain Location: Right Flank Pain Goal: 6 Pain Relief Measures: Comfort Measures Datetime: 12/05/2018 06:00 Labor Evaluation Frequency: none Resting Tone [place]: Relaxed Datetime: 12/05/2018 05:00 Labor Evaluation Frequency: none Resting Tone [place]: Relaxed Datetime: 12/05/2018 04:00 Labor Evaluation Frequency: NONE Resting Tone [place]: Relaxed Contraction Comments: PT STATES SHE DOES NOT FEEL ANY CONTRACTIONS; ABDOMEN SOFT TO PALPATION Datetime: 12/05/2018 03:00 Labor Evaluation Frequency: none Resting Tone [place]: Relaxed Contraction Comments: pt states she has not felt any contractions Datetime: 12/05/2018 02:23 Heart Rate FHR Baseline Rate: 132 Monitor Mode: Doppler Datetime: 12/05/2018 02:00 Assessment Type: Admission Assessment Vaginal Bleeding: None Maternal Assessment Level of Consciousness: Keenly Alert, Responsive DTR's/Clonus: DTRs 2+; No Clonus Headache: Denies Blurred Vision: No Respiratory Effort: Unlabored; Regular Rhythm; Equal Expansion Breath Sounds, Left: Clear and Equal Breath Sounds, Right: Clear and Equal Nausea/Vomiting: Denies RUQ Epigastric Pain: Denies Facial Edema: None Fall Risk Assessment History of Falling: (0) No Secondary Diagnosis: (0) No Ambulatory Aid: (0) Bedrest/Nurse Assist IV Therapy: (0) No Gait: (0) Normal/Bedrest/Immobile Mental Status: (0) Oriented to Own Ability Fall Score: 0 Fall Risk Score Definition: No Risk: No action required Labor Evaluation Frequency: none Monitor Mode: External Resting Tone [place]: Relaxed Vaginal Exam Membrane Status: Intact Datetime: 12/05/2018 01:50 Stage of : Antepartum Datetime: 12/05/2018 01:00 Stage of : OB Triage Time of Arrival: 12/05/2018 01:00 EGA: 21.3 Arrived By: Wheelchair Arrived From: ob triage Labor Evaluation Frequency: [place]CCASS Monitor Mode: External Duration (sec)2399: 50-60 Quality: Mild Pattern: Normal: <= 5 Contractions in 10 Minutes Resting Tone [place]: Relaxed Datetime: 12/05/2018 00:00 Stage of : OB Triage Labor Evaluation Frequency: [place] Monitor Mode: External Duration (sec)2399: 50-60 Quality: Mild Pattern: Normal: <= 5 Contractions in 10 Minutes Resting Tone [place]: Relaxed Datetime: 12/04/2018 23:00 Stage of : OB Triage Labor Evaluation Frequency: [place] Monitor Mode: External Duration (sec)2399: 50-60 Quality: Mild Pattern: Normal: <= 5 Contractions in 10 Minutes Resting Tone [place]: Relaxed Datetime: 12/04/2018 22:41 Time of Arrival: 12/04/2018 22:12 EGA: 21.2 Arrived By: Wheelchair Arrived From: Home Chief Complaint: c/o right flank pain. returned to continue her care from antepartum earlier t judit. previous diagnosis was pyelonephritis Movement: Present Contractions: Denies/Absent Rupture of Membranes: Denies Vaginal Bleeding: None Vaginal Discharge: Denies Recent Sexual Intercouse: Denies Abdominal Trauma: Not Applicable Patient Complaints: Back Pain Time Provider Notified: 12/04/2018 23:23 Provider Notified: hadadian Initial Plan: DOPPLER, TOCO, CALL MD Datetime: 12/04/2018 22:38 Stage of : OB Triage Assessment Type: Triage Maternal Assessment Level of Consciousness: Keenly Alert, Responsive DTR's/Clonus: DTRs 2+; No Clonus Headache: Denies Blurred Vision: No Respiratory Effort: Unlabored; Regular Rhythm; Equal Expansion Breath Sounds, Left: Clear and Equal Breath Sounds, Right: Clear and Equal Nausea/Vomiting: Denies RUQ Epigastric Pain: Denies Facial Edema: None Fall Risk Assessment History of Falling: (0) No Secondary Diagnosis: (0) No Ambulatory Aid: (0) Bedrest/Nurse Assist IV Therapy: (0) No Gait: (0) Normal/Bedrest/Immobile Mental Status: (0) Oriented to Own Ability Fall Score: 0 Fall Risk Score Definition: No Risk: No action required Pain Assessment Pain Scale: 9 Pain Presence: Intermittent Pain Type: Contraction Pain Location: Abdomen; Back Pain Relief Measures: Comfort Measures Datetime: 12/04/2018 22:35 Monitor Mode: Doppler Comments: FHR IS 142-151 Datetime: 12/04/2018 22:29 Stage of : OB Triage Datetime: 12/04/2018 18:20 Pain Assessment Comments: The patient is crying profoundly because somethoing bad happened to her m other, she rquested to go home, Datetime: 12/04/2018 18:15 Stage of : Antepartum Datetime: 12/04/2018 17:30 Stage of : Antepartum Datetime: 12/04/2018 16:25 Stage of : Antepartum Temperature Route: Oral Pain Assessment Pain Scale: 0 Pain Presence: None/Denies Pain Type: N/A Datetime: 12/04/2018 11:50 Stage of : Antepartum Temperature Route: Oral Datetime: 12/04/2018 11:05 Stage of : Antepartum Datetime: 12/04/2018 10:21 Heart Rate FHR Baseline Rate: 140 Monitor Mode: External [place] Datetime: 12/04/2018 10:02 Stage of : Antepartum Temperature Route: Oral Datetime: 12/04/2018 08:00 Assessment Type: Ongoing Assessment Maternal Assessment Level of Consciousness: Keenly Alert, Responsive DTR's/Clonus: DTRs 2+; No Clonus Headache: Denies Blurred Vision: No Respiratory Effort: Unlabored; Regular Rhythm; Equal Expansion Breath Sounds, Left: Clear and Equal Breath Sounds, Right: Clear and Equal Nausea/Vomiting: Denies RUQ Epigastric Pain: Denies Lower Extremities Edema: None Degree: None Upper Extremities Edema: None Degree: None Facial Edema: None Fall Risk Assessment History of Falling: (0) No Secondary Diagnosis: (0) No Ambulatory Aid: (0) Bedrest/Nurse Assist IV Therapy: (0) No Gait: (0) Normal/Bedrest/Immobile Mental Status: (0) Oriented to Own Ability Fall Score: 0 Fall Risk Score Definition: No Risk: No action required Datetime: 12/04/2018 05:56 Maternal Assessment Level of Consciousness: Keenly Alert, Responsive Headache: Denies Blurred Vision: No Temperature Route: Oral Comments: PT STATED + MOVEMENTS. Pain Presence: None/Denies Datetime: 12/03/2018 23:43 Heart Rate FHR Baseline Rate: 145 Monitor Mode: External US Comments: fht's q shift. Datetime: 12/03/2018 21:30 Pain Presence: None/Denies Datetime: 12/03/2018 20:50 Stage of : Antepartum Assessment Type: Ongoing Assessment Maternal Assessment Level of Consciousness: Keenly Alert, Responsive DTR's/Clonus: DTRs 2+; No Clonus Headache: Denies Blurred Vision: No Respiratory Effort: Unlabored; Regular Rhythm; Equal Expansion Breath Sounds, Left: Clear and Equal Breath Sounds, Right: Clear and Equal Nausea/Vomiting: Denies RUQ Epigastric Pain: Denies Lower Extremities Edema: None Degree: None Upper Extremities Edema: None Degree: None Facial Edema: None Temperature Route: Oral Fall Risk Assessment History of Falling: (0) No Secondary Diagnosis: (0) No Ambulatory Aid: (0) Bedrest/Nurse Assist IV Therapy: (0) No Gait: (0) Normal/Bedrest/Immobile Mental Status: (0) Oriented to Own Ability Fall Score: 0 Fall Risk Score Definition: No Risk: No action required Pain Assessment Pain Scale: 5 Pain Presence: Intermittent Pain Type: Sharp Pain Location: Right Flank Pain Goal: 3 Pain Relief Measures: Pain Medication Given; Comfort Measures (Annotations: 2 TYLENOL PO GIVEN.) Datetime: 12/03/2018 16:08 Pain Assessment Pain Scale: 6 Pain Location: Right Flank Datetime: 12/03/2018 11:01 Pain Assessment Pain Scale: 8 Pain Location: Right Flank Datetime: 12/03/2018 10:48 Heart Rate FHR Baseline Rate: 140 Comments: aga Datetime: 12/03/2018 08:55 Assessment Type: Ongoing Assessment Maternal Assessment Level of Consciousness: Keenly Alert, Responsive DTR's/Clonus: DTRs 2+; No Clonus Headache: Denies Blurred Vision: No Respiratory Effort: Unlabored; Regular Rhythm; Equal Expansion Breath Sounds, Left: Clear and Equal Breath Sounds, Right: Clear and Equal Nausea/Vomiting: Denies RUQ Epigastric Pain: Denies Facial Edema: None Fall Risk Assessment History of Falling: (0) No Secondary Diagnosis: (0) No Ambulatory Aid: (0) Bedrest/Nurse Assist IV Therapy: (20) Yes Gait: (0) Normal/Bedrest/Immobile Mental Status: (0) Oriented to Own Ability Fall Score: 20 Fall Risk Score Definition: No Risk: No action required Datetime: 12/03/2018 08:46 Pain Assessment Pain Scale: 9 Pain Location: Right Flank Pain Goal: 0 Datetime: 12/03/2018 06:07 Stage of : Antepartum Maternal Assessment Level of Consciousness: Keenly Alert, Responsive Headache: Denies Blurred Vision: No Temperature Route: Oral Comments: PT STATED + MOVEMENTS. Pain Presence: None/Denies Datetime: 12/03/2018 00:45 Pain Presence: None/Denies Datetime: 12/03/2018 00:10 Maternal Assessment Level of Consciousness: Keenly Alert, Responsive Headache: Denies Blurred Vision: No Pain Assessment Pain Scale: 8 Pain Presence: Intermittent Pain Type: Sharp Pain Location: Right Flank Pain Goal: 3 Pain Relief Measures: Pain Medication Given; Comfort Measures (Annotations: 2 tylenol po and warm compress applied to the afected area.) Datetime: 12/02/2018 23:05 Heart Rate FHR Baseline Rate: 145 Monitor Mode: External US Comments: fht's q shift 21 weeks. Datetime: 12/02/2018 20:30 Pain Assessment Pain Scale: 3 Pain Goal: 3 Datetime: 12/02/2018 19:43 Pain Assessment Pain Scale: 8 Pain Presence: Intermittent Pain Type: Sharp Pain Location: Right Flank Pain Goal: 3 Pain Relief Measures: Pain Medication Given; Comfort Measures (Annotations: 2 TYLENOL PO GIVEN AND WARM PAD APPLIED TO AREA.) Datetime: 12/02/2018 19:38 Assessment Type: Ongoing Assessment Maternal Assessment Level of Consciousness: Keenly Alert, Responsive DTR's/Clonus: DTRs 2+; No Clonus Headache: Denies Blurred Vision: No Respiratory Effort: Unlabored; Regular Rhythm; Equal Expansion Breath Sounds, Left: Clear and Equal Breath Sounds, Right: Clear and Equal Nausea/Vomiting: Denies RUQ Epigastric Pain: Denies Lower Extremities Edema: None Degree: None Upper Extremities Edema: None Degree: None Facial Edema: None Fall Risk Assessment History of Falling: (0) No Secondary Diagnosis: (0) No Ambulatory Aid: (0) Bedrest/Nurse Assist IV Therapy: (0) No Gait: (0) Normal/Bedrest/Immobile Mental Status: (0) Oriented to Own Ability Fall Score: 0 Fall Risk Score Definition: No Risk: No action required Datetime: 12/02/2018 17:39 Pain Location: Right Flank Pain Assessment Comments: pt. c/o right flank pain Datetime: 12/02/2018 17:02 Pain Presence: None/Denies Pain Type: N/A Datetime: 12/02/2018 16:00 Pain Presence: None/Denies Pain Type: N/A Datetime: 12/02/2018 14:07 Pain Presence: None/Denies Pain Type: N/A Datetime: 12/02/2018 10:39 Comments: FHR 145 BY US Datetime: 12/02/2018 08:00 Pain Assessment Pain Scale: 7 Pain Location: Right Flank Pain Goal: 3 Datetime: 12/02/2018 07:32 Assessment Type: Ongoing Assessment Maternal Assessment Level of Consciousness: Keenly Alert, Responsive DTR's/Clonus: DTRs 2+; No Clonus Headache: Denies Blurred Vision: No Respiratory Effort: Unlabored; Regular Rhythm; Equal Expansion Breath Sounds, Left: Clear and Equal Breath Sounds, Right: Clear and Equal Nausea/Vomiting: Denies RUQ Epigastric Pain: Denies Lower Extremities Edema: None Degree: None Upper Extremities Edema: None Degree: None Facial Edema: None Fall Risk Assessment History of Falling: (0) No Secondary Diagnosis: (0) No Ambulatory Aid: (0) Bedrest/Nurse Assist IV Therapy: (20) Yes Gait: (0) Normal/Bedrest/Immobile Mental Status: (0) Oriented to Own Ability Fall Score: 20 Fall Risk Score Definition: No Risk: No action required Datetime: 12/02/2018 05:37 Stage of : Antepartum Maternal Assessment Level of Consciousness: Keenly Alert, Responsive Headache: Denies Blurred Vision: No Temperature Route: Oral Comments: PT STATES SHE FEELS MOVEMENT. Pain Presence: None/Denies Datetime: 12/01/2018 23:57 Stage of : Antepartum Maternal Assessment Level of Consciousness: Keenly Alert, Responsive Headache: Denies Blurred Vision: No Temperature Route: Oral Comments: PT STATES SHE FEELS MOVEMENT. Pain Assessment Pain Scale: 6 Pain Presence: Constant Pain Type: Dull Pain Location: Right Flank Pain Goal: 6 Pain Relief Measures: Comfort Measures Datetime: 12/01/2018 22:13 Pain Assessment Pain Scale: 6 Pain Presence: Constant Pain Type: Dull Pain Location: Right Flank Pain Goal: 6 Pain Relief Measures: Comfort Measures Pain Assessment Comments: PT STATES RELIEF OF PAIN. Datetime: 12/01/2018 21:48 Heart Rate FHR Baseline Rate: 145 Comments: APPROPRIATE FOR GESTATIONAL AGE 24.1 WEEKS. Datetime: 12/01/2018 20:22 Pain Assessment Pain Scale: 10 Pain Presence: Constant Pain Type: Dull; Sharp Pain Location: Right Flank Pain Goal: 6 Pain Relief Measures: Comfort Measures Pain Assessment Comments: PT REPOSITIONED, HEAT PAD APPLIED. Datetime: 12/01/2018 19:37 Stage of : Antepartum Assessment Type: Ongoing Assessment Maternal Assessment Level of Consciousness: Keenly Alert, Responsive DTR's/Clonus: DTRs 2+; No Clonus Headache: Denies Blurred Vision: No Respiratory Effort: Unlabored; Regular Rhythm; Equal Expansion Breath Sounds, Left: Clear and Equal Breath Sounds, Right: Clear and Equal Nausea/Vomiting: Denies RUQ Epigastric Pain: Denies Lower Extremities Edema: None Degree: None Upper Extremities Edema: None Degree: None Facial Edema: None Temperature Route: Oral Fall Risk Assessment History of Falling: (0) No Secondary Diagnosis: (0) No Ambulatory Aid: (0) Bedrest/Nurse Assist IV Therapy: (20) Yes Gait: (0) Normal/Bedrest/Immobile Mental Status: (0) Oriented to Own Ability Fall Score: 20 Fall Risk Score Definition: No Risk: No action required Monitor Mode: External Pain Assessment Pain Scale: 8 Pain Presence: Constant Pain Type: Dull Pain Location: Right Flank Pain Goal: 6 Pain Relief Measures: Pain Medication Given Pain Assessment Comments: TYLENOL 650 MG GIVEN. Datetime: 12/01/2018 19:00 Stage of : Antepartum Labor Evaluation Frequency: 0 Monitor Mode: External Resting Tone [place]: Relaxed Datetime: 12/01/2018 18:32 Stage of : Antepartum Datetime: 12/01/2018 18:22 Assessment Type: Admission Assessment Vaginal Bleeding: None Maternal Assessment Level of Consciousness: Keenly Alert, Responsive DTR's/Clonus: DTRs 2+; No Clonus Headache: Denies Blurred Vision: No Respiratory Effort: Unlabored; Regular Rhythm; Equal Expansion Breath Sounds, Left: Clear and Equal Breath Sounds, Right: Clear and Equal Nausea/Vomiting: Denies RUQ Epigastric Pain: Denies Facial Edema: None Fall Risk Assessment History of Falling: (0) No Secondary Diagnosis: (0) No Ambulatory Aid: (0) Bedrest/Nurse Assist IV Therapy: (0) No Gait: (0) Normal/Bedrest/Immobile Mental Status: (0) Oriented to Own Ability Fall Score: 0 Fall Risk Score Definition: No Risk: No action required Datetime: 12/01/2018 18:00 Stage of : Antepartum Labor Evaluation Frequency: NONE Monitor Mode: External Resting Tone [place]: Relaxed Heart Rate FHR Baseline Rate: 145 Monitor Mode: External [place] FHR Baseline Changes: No Baseline Change Variability: Minimal - Undetectable to <=5 bpm Decelerations: Variable Pain Assessment Pain Scale: 0 Pain Presence: None/Denies Pain Type: N/A Pain Goal: 3 Vaginal Exam Membrane Status: Intact Datetime: 12/01/2018 17:00 Stage of : Antepartum Labor Evaluation Frequency: NONE Monitor Mode: External Resting Tone [place]: Relaxed Heart Rate FHR Baseline Rate: 145 Monitor Mode: External US FHR Baseline Changes: No Baseline Change Variability: Minimal - Undetectable to <=5 bpm Decelerations: Variable Pain Assessment Pain Scale: 0 Pain Presence: None/Denies Pain Type: N/A Pain Goal: 3 Vaginal Exam Membrane Status: Intact Datetime: 12/01/2018 15:29 Stage of : Antepartum Temperature Route: Oral Pain Assessment Pain Scale: 9 Pain Presence: Intermittent Pain Type: Ache Pain Location: Right Flank; Left Flank Pain Relief Measures: Comfort Measures Datetime: 12/01/2018 15:26 Maternal Assessment Level of Consciousness: Keenly Alert, Responsive DTR's/Clonus: DTRs 1+ Headache: Denies Blurred Vision: No Respiratory Effort: Unlabored Breath Sounds, Left: Clear and Equal Breath Sounds, Right: Clear and Equal Nausea/Vomiting: Denies RUQ Epigastric Pain: Denies Facial Edema: None Labor Evaluation Frequency: NONE Monitor Mode: External Resting Tone [place]: Relaxed Heart Rate FHR Baseline Rate: 145 Monitor Mode: Doppler Pain Assessment Pain Scale: 0 Pain Presence: None/Denies Pain Type: N/A Pain Goal: 3 Vaginal Exam Membrane Status: Intact Datetime: 12/01/2018 14:36 Stage of : OB Triage Maternal Assessment Level of Consciousness: Keenly Alert, Responsive DTR's/Clonus: DTRs 1+ Headache: Denies Breath Sounds, Left: Clear and Equal Breath Sounds, Right: Clear and Equal Nausea/Vomiting: Denies RUQ Epigastric Pain: Denies Labor Evaluation Frequency: NONE Monitor Mode: External Resting Tone [place]: Relaxed Heart Rate FHR Baseline Rate: 145 Monitor Mode: Doppler Pain Assessment Pain Scale: 0 Pain Presence: None/Denies Pain Type: N/A Pain Goal: 3 Vaginal Exam Membrane Status: Intact Datetime: 12/01/2018 14:22 Stage of : OB Triage Datetime: 11/24/2018 00:03 EGA: 19.5 Datetime: 11/23/2018 23:50 Fall Score: 0 Fall Risk Score Definition: No Risk: No action required
[2018-12-05] MEDS ORDERED: ACETAMINOPHEN 325 MG TAB PO PRN (08:00)
[2018-12-05] MEDS ORDERED: PRENATAL VITAMIN PO SCH (09:00)
--- NOTE | 2018-12-05 10:19 | PD.PPDC ---
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 JOSE ROBERTO ADAME MD Dec 05, 2018 10:19
[2018-12-05] MEDS ORDERED: CYCL5TAB PO (10:20)
--- NOTE | 2018-12-05 10:24 | DS ---
Date/Time of Note Date/Time of Note DATE: 12/05/18 TIME: 10:21 Obstetrical Discharge Record Final Diagnosis Final Diagnosis: not delivered Other Final Diagnosis Right back muscle spasms. No pyelonephritis or kidney stones. Urine cx negative. Complications Augmentation: No Induction: No Rupture of Membranes: No Condition on Discharge Physical Assessment Last Vitals: 140/80's (h/o HTN, on meds) Voiding: Yes Bowel Movement: Yes Breast: Soft, non-tender Fundus: Other (gravid) Abdomen and Incision: Right back strap muscle is distinctly tight and the source of her pain compared to the left. Calf Tenderness: No Patient Condition: JOSE ROBERTO Kent MD Dec 05, 2018 10:24
== END 2018-12-05 10:55 | disposition home or self-care (01) | DRG 833 ==
LOC: OBT 22:17 → L-D 22:19 → OBT 23:23 → L-D 23:54
PROVIDERS: ADMIT Obstetrics & Gynecology; ATTEND Obstetrics & Gynecology
DX: O26.892 Other specified pregnancy related conditions, second trimester (principal); Z3A.21 21 weeks gestation of pregnancy; M62.830 Muscle spasm of back
CPT/HCPCS: 80307; 81001; 85025; 86850; 86900; 86901; G0463; J0131; J1580; J2405; J7120

== ENCOUNTER 2018-12-19 15:43 | Outpatient (CLI) | payer OTHER ==
[~2018-12-19] VITALS: Ht 149.9 cm; Wt 69.3 kg
[~2018-12-19 15:43] MED LIST changes: +CYCL10TA7 PO; +CYCL5TAB PO; +URSO300C21 PO
[2018-12-19 16:01] VITALS: BP 126/71; PULSE 109; RESP 18; Ht 149.9 cm; Wt 69.3 kg
[2018-12-19] MEDS ORDERED: LACTATED RINGER'S 1,000 ML IV SCH (16:30)
--- NOTE | 2018-12-19 18:13 | TRIAGE ---
OB Triage Datetime Report Generated by CPN: 12/19/2018 18:12 Datetime: 12/19/2018 18:00 Stage of : OB Triage Maternal Assessment Level of Consciousness: Keenly Alert, Responsive Labor Evaluation Frequency: 0 Monitor Mode: External Resting Tone Roberta: Relaxed Pain Assessment Pain Scale: 0 Pain Goal: 3 Vaginal Exam Membrane Status: Intact Vaginal Bleeding: None Datetime: 12/19/2018 17:00 Stage of : OB Triage Maternal Assessment Level of Consciousness: Keenly Alert, Responsive Labor Evaluation Frequency: 0 Monitor Mode: External Resting Tone Roberta: Relaxed Heart Rate FHR Baseline Rate: 140 Monitor Mode: External US Variability: Moderate 6-25 bpm Decelerations: None Pain Assessment Pain Scale: 0 Pain Goal: 3 Vaginal Exam Membrane Status: Intact Vaginal Bleeding: None Datetime: 12/19/2018 15:57 Assessment Type: Triage Maternal Assessment Level of Consciousness: Keenly Alert, Responsive DTR's/Clonus: DTRs 2+; No Clonus Headache: Denies Blurred Vision: No Respiratory Effort: Unlabored; Regular Rhythm; Equal Expansion Breath Sounds, Left: Clear and Equal Breath Sounds, Right: Clear and Equal Nausea/Vomiting: Denies RUQ Epigastric Pain: Denies Lower Extremities Edema: None Degree: None Upper Extremities Edema: None Degree: None Facial Edema: None Fall Risk Assessment History of Falling: (0) No Secondary Diagnosis: (0) No Ambulatory Aid: (0) Bedrest/Nurse Assist IV Therapy: (20) Yes Gait: (0) Normal/Bedrest/Immobile Mental Status: (0) Oriented to Own Ability Fall Score: 20 Fall Risk Score Definition: No Risk: No action required Datetime: 12/19/2018 15:55 Time of Arrival: 12/19/2018 15:33 EGA: 24.0 Arrived By: Ambulatory Arrived From: Home Chief Complaint: PT. HERE C/O SOB AND NUMBNESS AND TINGLING IN ALL EXTREMITIES Movement: Present Contractions: Denies/Absent Rupture of Membranes: Denies Vaginal Bleeding: None Vaginal Discharge: Denies Recent Sexual Intercouse: Yes Abdominal Trauma: Not Applicable Patient Complaints: None Time Provider Notified: 12/19/2018 16:00 Provider Notified: FAZILAT Initial Plan: NST/CHERYL/BG/CVL Datetime: 12/19/2018 15:54 Monitor Mode: External Monitor Mode: External US Datetime: 12/05/2018 10:14 Maternal Assessment Level of Consciousness: Keenly Alert, Responsive Headache: Denies Blurred Vision: No Nausea/Vomiting: Denies RUQ Epigastric Pain: Denies Facial Edema: None Labor Evaluation Frequency: 0 Monitor Mode: External Pattern: Normal: <= 5 Contractions in 10 Minutes Resting Tone Roberta: Relaxed Heart Rate FHR Baseline Rate: 145 Monitor Mode: Doppler Pain Assessment Pain Scale: 0 Pain Presence: None/Denies Pain Type: N/A Datetime: 12/05/2018 09:56 Maternal Assessment Level of Consciousness: Keenly Alert, Responsive Headache: Denies Blurred Vision: No Nausea/Vomiting: Denies RUQ Epigastric Pain: Denies Facial Edema: None Labor Evaluation Frequency: 0 Monitor Mode: External Pattern: Normal: <= 5 Contractions in 10 Minutes Resting Tone Roberta: Relaxed Datetime: 12/05/2018 09:40 Pain Assessment Pain Scale: 7 Pain Presence: Constant Pain Type: Sharp Pain Location: Back Pain Relief Measures: Pain Medication Given Pain Assessment Comments: PT REPORTS THAT PAIN IS DECREASED WHEN SHE LIES ON HER SIDE, BUT STILL RE QUESTS TYLENOL Datetime: 12/05/2018 09:04 Maternal Assessment Level of Consciousness: Keenly Alert, Responsive Headache: Denies Blurred Vision: No Nausea/Vomiting: Denies RUQ Epigastric Pain: Denies Facial Edema: None Monitor Mode: External Pain Assessment Pain Scale: 7 Pain Presence: Constant Pain Type: Sharp Pain Location: Back Pain Assessment Comments: PT REQUESTS PAIN MEDICATION; RN TO ADMINISTER IV TYLENOL; PT REPORTS THAT SHE EXPERIENCED NAUSEA AND VOMITING THE LAST TIME THIS WAS ADMINISTERED; SHE WOULD STILL LIKE THE IV TYLENOL, BUT REQUESTS ZOFRAN AT THE SAME TIME. Datetime: 12/05/2018 09:01 Contraction Comments: TOCO NOT ON; PT REMOVED Datetime: 12/05/2018 09:00 Pain Assessment Pain Scale: 7 Pain Presence: Constant Pain Type: Sharp Pain Location: Back Pain Assessment Comments: PT REQUESTS PAIN MEDICATION Datetime: 12/05/2018 08:24 Assessment Type: Ongoing Assessment Maternal Assessment Level of Consciousness: Keenly Alert, Responsive Headache: Denies Blurred Vision: No Respiratory Effort: Unlabored; Regular Rhythm; Equal Expansion Breath Sounds, Left: Clear and Equal Breath Sounds, Right: Clear and Equal Nausea/Vomiting: Denies RUQ Epigastric Pain: Denies Lower Extremities Edema: None Degree: None Upper Extremities Edema: None Degree: None Facial Edema: None Fall Risk Assessment History of Falling: (0) No Secondary Diagnosis: (0) No Ambulatory Aid: (0) Bedrest/Nurse Assist IV Therapy: (20) Yes (Annotations: INFUSING LR @125ML/HR) Gait: (0) Normal/Bedrest/Immobile Mental Status: (0) Oriented to Own Ability Fall Score: 20 Fall Risk Score Definition: No Risk: No action required Pain Assessment Pain Scale: 0 Pain Presence: None/Denies Pain Type: N/A Datetime: 12/05/2018 08:01 Labor Evaluation Frequency: 0 Monitor Mode: External Pattern: Normal: <= 5 Contractions in 10 Minutes Resting Tone Roberta: Relaxed Datetime: 12/05/2018 02:00 Fall Score: 0 Fall Risk Score Definition: No Risk: No action required Datetime: 12/05/2018 01:00 EGA: 22.0 Datetime: 12/04/2018 22:41 EGA: 21.6 Datetime: 12/04/2018 22:38 Fall Score: 0 Fall Risk Score Definition: No Risk: No action required Datetime: 12/04/2018 08:00 Fall Score: 0 Fall Risk Score Definition: No Risk: No action required Datetime: 12/03/2018 20:50 Fall Score: 0 Fall Risk Score Definition: No Risk: No action required Datetime: 12/03/2018 08:55 Fall Score: 20 Fall Risk Score Definition: No Risk: No action required Datetime: 12/02/2018 19:38 Fall Score: 0 Fall Risk Score Definition: No Risk: No action required Datetime: 12/02/2018 07:32 Fall Score: 20 Fall Risk Score Definition: No Risk: No action required Datetime: 12/01/2018 19:37 Fall Score: 20 Fall Risk Score Definition: No Risk: No action required Datetime: 12/01/2018 18:22 Fall Score: 0 Fall Risk Score Definition: No Risk: No action required Datetime: 11/24/2018 00:03 EGA: 20.2 Datetime: 11/23/2018 23:50 Fall Score: 0 Fall Risk Score Definition: No Risk: No action required
--- NOTE | 2018-12-21 09:49 | PN ---
Triage Information Date/Time late entry note for 12/19/2018 Reason for visit: chest pain, SOB, diarrhea Weeks of Gestation at 24 wks ga BETINA [birth year] presents with chest pain, SOB and diarrhea she reports positive movement, denies contractions, denies vaginal bleeding or leaking fluid /Para Diabetes: none Hypertention: essential (on labetalol) Objective Vital Signs Date Temp Pulse Resp B/P (MAP) Pulse Ox O2 O2 Flow FiO2 Time Delivery Rate 12/19/18 98.0 109 18 126/71 98 Room Air 16:01 (89) Heart Rate: 140's Heart Rate Comments FHR tracing appropriate for gestational age Contractions: None Results/Medications Result Diagram: 12/19/18 1629 12/19/18 1629 Imaging Results PROCEDURE: US OB limited amniotic fluid index with transvaginal CLINICAL INDICATION: . Amniotic fluid index Gestational hypertension, contractions TECHNIQUE: Multiple transabdominal and transvaginal sonographic images of the pelvis and gravid uterus were obtained. The images were reviewed on a PACS workstation. COMPARISON: 12/01/2018 FINDINGS: Cervix: Length: 4.45 cm on transvaginal ultrasound. Appearance of minimal fluid in endocervical canal. Gestation: Single live intrauterine gestation. Cardiac activity: 154 beats per minute. Presentation: Cephalic Placenta: Location: Posterior Appearance: No previa or abruption. Amniotic Fluid: CHERYL = 19.33 cm Measurements: Gestational Age: LMP estimated gestational age: 24 weeks 2 days IMPRESSION: 1. Single live intrauterine gestation. 2. Minimal fluid in endocervical canal decreased compared to the previous study. RPTAT: HJES .Kyle Grant MD, MD Date Time Electronically viewed and signed by .Kyle Grant MD, on 12/19/2018 17:57 .S/ CC: BASHIR MARTEL MD [id number] Disposition: Discharge Assessment/Plan patient instructed to increase fluid intake/hydration patient was cleared from OB stand point and she was sent to ED for evaluation of her chest pain/ SOB she was instructed to f/u with obgyn clinic in 1-2 days BASHIR MARTEL MD Dec 21, 2018 09:49
== END 2018-12-19 18:20 | disposition home or self-care (01) ==
LOC: L-D 15:43 → OBT 15:43
PROVIDERS: ATTEND Obstetrics & Gynecology
DX: O26.892 Other specified pregnancy related conditions, second trimester (principal); Z3A.24 24 weeks gestation of pregnancy; R07.9 Chest pain, unspecified; R06.02 Shortness of breath; R19.7 Diarrhea, unspecified
CPT/HCPCS: 36415; 76815; 76817; 80053; 81001; 82962; 85025; 96360; 96361; J7120; Z7500; G0463

== ENCOUNTER 2018-12-19 18:26 | Emergency (ER) | payer MEDICAID, OTHER ==
[~2018-12-19] VITALS: Ht 149.9 cm; Wt 70.3 kg
[2018-12-19 18:30] VITALS: BP 129/62; PULSE 83; RESP 20; Ht 149.9 cm; Wt 70.3 kg
[2018-12-19] MEDS ORDERED: CYCLOBENZAPRINE 10 MG TAB PO ONE (19:30)
--- NOTE | 2018-12-20 05:05 | ERD ---
ER Documentation Chief Complaint Chief Complaint chest pain this morning, 24 weeks , swelling of feet and hands HPI This is a very pleasant 18-year-old G2, P1 female at approximately 24 weeks gestation with history of hypertension who presents to the ED with complaints of shortness of breath and chest pain since this morning. She describes her chest pain as pressure-like and localized to her substernal chest. Patient was seen in the labor and delivery department prior to arriving here in the emergency department. She had a full work-up there including CBC, CMP, UA that were all unremarkable. She was then sent here for evaluation of her continued chest pain or shortness of breath. No leg swelling or calf pain. Of note, patient states she was diagnosed with right lower back muscle spasm. She was given a p rescription for muscle relaxants but insurance did not cover this so she is requesting a dose of it here in the department. There has been no fall. No trauma. No bilateral lower extremity numbness or tingling. No other complaints. ROS All systems reviewed and are negative except as per history of present illness. Medications Home Meds Active Scripts Cyclobenzaprine Hcl* (Cyclobenzaprine Hcl*) 10 Mg Tablet, 10 MG PO TID, #15 TAB Prov:BELINDA HOLLINGSWORTH PA-C 12/19/18 Reported Medications Labetalol Hcl* (Labetalol Hcl*) 100 Mg Tablet, 100 MG PO DAILY, TAB 12/19/18 Discontinued Reported Medications Vits #93-Iron Fum-FA ( Formula) 1 Each Tablet, 1 TAB PO DAILY, TAB 11/24/18 Discontinued Scripts Cyclobenzaprine Hcl* (Cyclobenzaprine Hcl*) 5 Mg Tablet, 5 MG PO Q8H PRN for MUSCLE SPASMS, #20 TAB Prov:JOSE ROBERTO ADAME MD 12/05/18 Allergies Allergies: Coded Allergies: Penicillins (Verified Allergy, Unknown, 12/04/18) amoxicillin (Verified Allergy, Unknown, 12/04/18) clavulanic acid (Verified Allergy, Unknown, 12/04/18) PMhx/Soc Medical and Surgical Hx: pt denies Medical Hx History of Surgery: No Anesthesia Reaction: No Hx Neurological Disorder: No Hx Respiratory Disorders: No Hx Cardiac Disorders: Yes (HTN) Hx Psychiatric Problems: No Hx Miscellaneous Medical Probl: No Hx Alcohol Use: No Hx Substance Use: No Hx Tobacco Use: No Smoking Status: Never smoker Physical Exam Vitals Vital Signs Date Temp Pulse Resp B/P (MAP) Pulse Ox O2 O2 Flow FiO2 Time Delivery Rate 12/19/18 98.2 83 20 129/62 99 18:30 (84) Physical Exam Const: No acute distress Head: Atraumatic Eyes: Normal Conjunctiva ENT: Normal External Ears, Nose and Mouth. Neck: Full range of motion. No meningismus. Resp: Clear to auscultation bilaterally Cardio: Regular rate and rhythm, no murmurs Abd: + Gravid abdomen. Soft, non tender, non distended. Normal bowel sounds Skin: No petechiae or rashes Back: No midline or flank tenderness Ext: No cyanosis, or edema. Negative Homans sign. No extremity swelling. No pedal edema. Neur: Awake and alert Psych: Normal Mood and Affect Results 24 hrs Current Medications Medications Dose Sig/Gurmeet Start Time Status Last (Trade) Ordered Route PRN Stop Time Admin Dose Reason Admin 10 mg ONCE ONCE 12/19/18 DC 12/19/18 Cyclobenzapri PO 19:30 19:16 ne HCl 12/19/18 19:31 (Flexeril) Procedures/MDM PROCEDURES: 12-lead EKG interpretation as interpeted by Dr. Ann Normal Sinus Rhythm with ventricular rate of 79 beats per minute Normal axis Normal intervals No acute ST or T wave changes suggestive of acute ischemia or STEMI. ED COURSE: The patient was given cyclobenzaprine per her request The medication was well tolerated and the patient had market improvement in symptoms. The patient remained stable throughout ED course. MEDICAL DECISION MAKIN-year-old G2 A1 female at 24 weeks gestation with history of hypertension presents with shortness of breath and chest pain. EKG is reassuring. She has no evidence of calf swelling or pain. No hypoxia or respiratory distress. I have low suspicion for PE/DVT. I suspect her shortness of breath is related to her . She was seen in labor and delivery prior to arriving here in the department with work-up including CBC, CMP, UA all unremarkable. Do not think she needs further work-up at this time. I have low suspicion for preeclampsia or eclampsia. No evidence of hypertensive emergency or urgency. She was given a muscle relaxant pill here per her request and discharged home with a prescription for same. Patient and family was reassured. I recommended PARARESCUE MANAGER follow-up in 1 week. Strict return precautions were discussed. PRESCRIPTIONS: Cyclobenzaprine SPECIALIST FOLLOW UP RECOMMENDED: PARARESCUE MANAGER Departure Diagnosis: Primary Impression: Atypical chest pain Additional Impression: Muscle spasm Condition: Stable Patient Instructions: Muscle Spasm, Chest Pain, Uncertain Cause Additional Instructions: Follow-up with your PARARESCUE MANAGER next week. Her EKG is reassuring. Take the cyclobenzaprine as needed for muscle spasms. You can Also take Tylenol as well. Return here for any new or worsening symptoms. BELINDA HOLLINGSWORTH PA-C Dec 20, 2018 05:05
== END 2018-12-19 19:28 | disposition home or self-care (01) ==
LOC: FTE 18:26
DX: O26.892 Other specified pregnancy related conditions, second trimester (principal); R07.89 Other chest pain; M62.838 Other muscle spasm; O99.89 Other specified diseases and conditions complicating pregnancy, childbirth and the puerperium; O13.9 Gestational [pregnancy-induced] hypertension without significant proteinuria, unspecified trimester; Z3A.24 24 weeks gestation of pregnancy
CPT/HCPCS: 93005; Z7610

== ENCOUNTER 2018-12-30 18:53 | Emergency (ER) | payer MEDICAID, OTHER ==
[~2018-12-30] VITALS: Ht 149.9 cm; Wt 70.2 kg
[~2018-12-30 18:53] MED LIST changes: -CYCL5TAB PO; -PREN-6 PO
[2018-12-30 18:56] VITALS: BP 152/72; PULSE 102; RESP 24; Ht 149.9 cm; Wt 70.2 kg
== END 2018-12-30 20:03 | disposition left against medical advice (07) ==
LOC: FTE 18:53
DX: Z53.21 Procedure and treatment not carried out due to patient leaving prior to being seen by health care provider (principal)

== ENCOUNTER 2018-12-30 20:02 | Outpatient (CLI) | payer MEDICAID, OTHER ==
[~2018-12-30] VITALS: Ht 149.9 cm; Wt 70.5 kg
[2018-12-30 21:33] VITALS: Ht 149.9 cm; Wt 70.5 kg
[2018-12-30 21:34] VITALS: BP 116/78; PULSE 88; RESP 18
--- NOTE | 2018-12-31 00:48 | PN ---
Triage Information Date/Time 12/31/2018 Reason for visit: Weeks of Gestation 25 weeks and 4 days /Para Diabetes: none Hypertention: none Additional information 18 years old G2, P0 with IUP at 25 weeks and 4 days presented to triage with complaint of itching for the past 3 weeks. Patient reports itching is intense and worse at nighttime. Itching involves the whole body. Patient reports has been taking Benadryl that does not help with the itching. Antepartum course was complicated by chronic hypertension, currently on labetalol. Blood pressure well controlled. Denies any headache, blurred vision, epigastric pain or right upper quadrant pain. Objective Vital Signs Date Temp Pulse Resp B/P (MAP) Pulse Ox O2 O2 Flow FiO2 Time Delivery Rate 12/30/18 98.2 88 18 116/78 Room Air 21:34 (91) Heart Rate: 120's Contractions: None Exam Appearance: Alert and oriented x4 does not appear to be in any acute distress Abdomen: Soft, gravid, size appears to be larger than dates however ultrasound showed normal growth NST: Category 1 and appropriate for gestational age No contraction on the monitor BPP: 12/31 Results/Medications Result Diagram: 12/30/18214812/30/182148 Results 24 hrs Laboratory Tests Test 12/30/18 21:49 White Blood Count 9.1 Red Blood Count 3.81 L Hemoglobin 10.5 L Hematocrit 32.3 L Mean Corpuscular Volume 84.8 Mean Corpuscular Hemoglobin 27.6 L Mean Corpuscular Hemoglobin Concent 32.5 Red Cell Distribution Width 13.2 Platelet Count 238 Mean Platelet Volume 11.2 H Immature Granulocytes % 0.500 H Neutrophils % 64.3 Lymphocytes % 24.9 Monocytes % 9.6 Eosinophils % 0.5 Basophils % 0.2 Nucleated Red Blood Cells % 0.0 Immature Granulocytes # 0.050 H Neutrophils # 5.9 Lymphocytes # 2.3 Monocytes # 0.9 Eosinophils # 0.1 Basophils # 0.0 Nucleated Red Blood Cells # 0.0 Sodium Level 135 Potassium Level 4.2 Chloride Level 105 Carbon Dioxide Level 25 Anion Gap 5 Blood Urea Nitrogen 9 Creatinine 0.62 Est Glomerular Filtrat Rate mL/min > 60 Glucose Level 88 Calcium Level 9.3 Total Bilirubin 0.3 Direct Bilirubin 0.00 Indirect Bilirubin 0.3 Aspartate Amino Transf (AST/SGOT) 26 Alanine Aminotransferase (ALT/SGPT) 16 Alkaline Phosphatase 70 Total Protein 7.2 Albumin 3.8 Globulin 3.40 H Albumin/Globulin Ratio 1.08 Imaging Results PROCEDURE: US OB CLINICAL INDICATION: . Suspected IUGR TECHNIQUE: Multiple transabdominal sonographic images of the pelvis and gravid uterus were obtained. The images were reviewed on a PACS workstation. COMPARISON: US PELVIS 12/19/2018; US 12/01/2018 FINDINGS: Cervix: Not delineated. Gestation: Single live intrauterine gestation. Cardiac activity: 146 beats per minute. Presentation: Cephalic Placenta: Location: Posterior Appearance: No abruption. Amniotic Fluid: Maximum vertical pocket equals 6.5 cm. Measurements: BPD = 6.5 cm, 26 weeks 3 days HC = 23.79 cm, 25 weeks 6 days AC = 21.34 cm, 25 weeks 6 days FL = 4.78 cm, 26 weeks 0 days Gestational Age: AUA estimated gestational age: 26 weeks 0 days LMP estimated gestational age: 26 weeks 0 days AUA estimated date of delivery: 04/08/2019 The EFW = 871.08 g, 35.8 %ile based on LMP age. IMPRESSION: 1. Single live intrauterine gestation of 26 weeks 0 days by ultrasound criteria. 2. Estimated date of delivery of 04/08/2019. Estimated delivery based on the 12/01/2018 study is 04/10/2019. 3. No abnormality identified. RPTAT: HJES .Kyle Grant MD, MD Date Time Disposition: Discharge Assessment/Plan IUP at 25 weeks and 4 days Itching, Cannot rule out cholestasis. LFTs normal. Patient will be started on ursodiol 3 times daily Recommended to have fasting bile acids tomorrow and have a follow-up in 3 days in triage again for NST/BPP with follow-up of labs Strict labor precautions and kick count and preeclampsia precautions discussed with the patient Blood pressure normal during observation the patient was asymptomatic. Patient on labetalol for chronic hypertension blood pressure well controlled. Importance of close follow-up and monitoring in order to rule out cholestasis of and complications and risk of cholestasis and current including but not limited to stillbirth/IUFD discussed with patient patient verbalized understanding and agreed to comply with instructions All questions were answered to patient's best satisfaction. СЕРГЕЙ VERA MD Dec 31, 2018 00:45
== END 2018-12-31 00:55 | disposition home or self-care (01) ==
LOC: OBT 20:02 → L-D 20:03 → OBT 12-31 00:55
PROVIDERS: ATTEND Obstetrics & Gynecology
DX: O26.892 Other specified pregnancy related conditions, second trimester (principal); L29.9 Pruritus, unspecified; Z3A.25 25 weeks gestation of pregnancy
CPT/HCPCS: 76815; 80053; 80076; 83789; 85025; Z7500; G0463

== ENCOUNTER 2019-01-03 12:27 | Outpatient (CLI) | payer OTHER ==
[~2019-01-03] VITALS: Ht 152.4 cm; Wt 70.9 kg
[2019-01-03 12:31] VITALS: BP 122/56; PULSE 106; RESP 18; Ht 152.4 cm; Wt 70.9 kg
--- NOTE | 2019-01-03 14:51 | TRIAGE ---
OB Triage Datetime Report Generated by CPN: 01/03/2019 14:51 Datetime: 01/03/2019 14:26 Pattern: Normal: <= 5 Contractions in 10 Minutes Resting Tone Haigler: Relaxed Contraction Comments: no uc Heart Rate FHR Baseline Rate: 135 Variability: Moderate 6-25 bpm Accelerations: 15X15 Decelerations: Variable Category: Category II Pain Assessment Pain Presence: None/Denies Pain Type: N/A Datetime: 01/03/2019 13:01 Pattern: Normal: <= 5 Contractions in 10 Minutes Resting Tone Haigler: Relaxed Contraction Comments: NO UC Heart Rate FHR Baseline Rate: 135 Variability: Moderate 6-25 bpm Accelerations: 15X15 Datetime: 01/03/2019 12:40 Assessment Type: Triage Maternal Assessment Level of Consciousness: Keenly Alert, Responsive DTR's/Clonus: DTRs 2+; No Clonus Headache: Denies Blurred Vision: No Respiratory Effort: Unlabored; Regular Rhythm; Equal Expansion Breath Sounds, Left: Clear and Equal Breath Sounds, Right: Clear and Equal Nausea/Vomiting: Denies RUQ Epigastric Pain: Denies Lower Extremities Edema: None Degree: None Upper Extremities Edema: None Degree: None Facial Edema: None Fall Risk Assessment History of Falling: (0) No Secondary Diagnosis: (0) No Ambulatory Aid: (0) Bedrest/Nurse Assist IV Therapy: (0) No Gait: (0) Normal/Bedrest/Immobile Mental Status: (0) Oriented to Own Ability Fall Score: 0 Fall Risk Score Definition: No Risk: No action required Datetime: 01/03/2019 12:38 Time of Arrival: 01/03/2019 12:18 EGA: 26.3 Arrived By: Ambulatory Arrived From: Home Chief Complaint: Follow up for nst, bpp due to cholestasis Movement: Present Contractions: Denies/Absent Rupture of Membranes: Denies Vaginal Bleeding: None Vaginal Discharge: Denies Recent Sexual Intercouse: Denies Abdominal Trauma: Not Applicable Patient Complaints: None Time Provider Notified: 01/03/2019 14:24 Provider Notified: Initial Plan: nst, bpp Datetime: 12/30/2018 22:45 Labor Evaluation Frequency: NONE Monitor Mode: External Resting Tone Haigler: Relaxed Contraction Comments: TOCO REMOVED Heart Rate FHR Baseline Rate: 135 Monitor Mode: External US Variability: Moderate 6-25 bpm Accelerations: 15X15 Decelerations: None Category: Category I Comments: SOME LOSS OF CONTACT DUE TO PT SITTING UP Comments: US REMOVED Datetime: 12/30/2018 22:00 Labor Evaluation Frequency: NONE Monitor Mode: External Resting Tone Haigler: Relaxed Heart Rate FHR Baseline Rate: 135 Monitor Mode: External US Variability: Moderate 6-25 bpm Accelerations: 15X15 Decelerations: None Category: Category I Datetime: 12/30/2018 21:29 Stage of : OB Triage Assessment Type: Triage Maternal Assessment Level of Consciousness: Keenly Alert, Responsive DTR's/Clonus: DTRs 2+; No Clonus Headache: Denies Blurred Vision: No Respiratory Effort: Unlabored; Regular Rhythm; Equal Expansion Breath Sounds, Left: Clear and Equal Breath Sounds, Right: Clear and Equal Nausea/Vomiting: Denies RUQ Epigastric Pain: Denies Facial Edema: None Temperature Route: Axillary Fall Risk Assessment History of Falling: (0) No Secondary Diagnosis: (0) No Ambulatory Aid: (0) Bedrest/Nurse Assist IV Therapy: (0) No Gait: (0) Normal/Bedrest/Immobile Mental Status: (0) Oriented to Own Ability Fall Score: 0 Fall Risk Score Definition: No Risk: No action required Datetime: 12/30/2018 21:28 Time of Arrival: 12/30/2018 21:28 EGA: 25.6 Arrived By: Ambulatory Arrived From: Home Chief Complaint: itching x 3 weeks Movement: Present Contractions: Denies/Absent Rupture of Membranes: Denies Vaginal Bleeding: None Vaginal Discharge: Denies Recent Sexual Intercouse: Denies Abdominal Trauma: Not Applicable Patient Complaints: Other Initial Plan: EFM Datetime: 12/30/2018 21:25 Labor Evaluation Frequency: none Monitor Mode: External Heart Rate FHR Baseline Rate: 135 Monitor Mode: External US Datetime: 12/30/2018 21:24 Contraction Comments: TOCO APPLIED Comments: US APPLIED Datetime: 12/19/2018 15:57 Fall Score: 20 Fall Risk Score Definition: No Risk: No action required Datetime: 12/19/2018 15:55 EGA: 24.2 Datetime: 12/05/2018 08:24 Fall Score: 20 Fall Risk Score Definition: No Risk: No action required Datetime: 12/05/2018 02:00 Fall Score: 0 Fall Risk Score Definition: No Risk: No action required Datetime: 12/05/2018 01:00 EGA: 22.1 Datetime: 12/04/2018 22:41 EGA: 22.1 Datetime: 12/04/2018 22:38 Fall Score: 0 Fall Risk Score Definition: No Risk: No action required Datetime: 12/04/2018 08:00 Fall Score: 0 Fall Risk Score Definition: No Risk: No action required Datetime: 12/03/2018 20:50 Fall Score: 0 Fall Risk Score Definition: No Risk: No action required Datetime: 12/03/2018 08:55 Fall Score: 20 Fall Risk Score Definition: No Risk: No action required Datetime: 12/02/2018 19:38 Fall Score: 0 Fall Risk Score Definition: No Risk: No action required Datetime: 12/02/2018 07:32 Fall Score: 20 Fall Risk Score Definition: No Risk: No action required Datetime: 12/01/2018 19:37 Fall Score: 20 Fall Risk Score Definition: No Risk: No action required Datetime: 12/01/2018 18:22 Fall Score: 0 Fall Risk Score Definition: No Risk: No action required Datetime: 11/24/2018 00:03 EGA: 20.4 Datetime: 11/23/2018 23:50 Fall Score: 0 Fall Risk Score Definition: No Risk: No action required
--- NOTE | 2019-01-03 16:34 | PN ---
Triage Information Date/Time Reason for visit: NST BPP for Cholestasis of Weeks of Gestation 26+ /Para n/a Diabetes: none Hypertention: none Objective Vital Signs Date Temp Pulse Resp B/P (MAP) Pulse Ox O2 O2 Flow FiO2 Time Delivery Rate 01/03/19 98.0 106 18 122/56 12:31 (78) Heart Rate: 150's Contractions: None Disposition: Discharge Assessment/Plan Ultrasound and tracing reviewed precautions discussed Follow up with provider MIRIAM HUYNH M.D. Jan 03, 2019 16:34
== END 2019-01-03 14:45 | disposition home or self-care (01) ==
LOC: L-D 12:27 → OBT 12:27
PROVIDERS: ATTEND Obstetrics & Gynecology
DX: O26.612 Liver and biliary tract disorders in pregnancy, second trimester (principal); K83.1 Obstruction of bile duct; Z3A.26 26 weeks gestation of pregnancy
CPT/HCPCS: 76818; Z7500; G0463

== ENCOUNTER 2019-01-06 16:38 | Outpatient (CLI) | payer OTHER ==
[~2019-01-06] VITALS: Ht 149.9 cm; Wt 70.9 kg
[2019-01-06 17:27] VITALS: Ht 149.9 cm; Wt 70.9 kg
[2019-01-06 17:28] VITALS: BP 119/70
--- NOTE | 2019-01-07 14:49 | PN ---
Triage Information Date/Time Late entry note for exam done for January 06, 2019 Reason for visit: Nausea, diarrhea for the last 4 days Weeks of Gestation 26 weeks and 6 days /Para 2 para 0 Diabetes: none Hypertention: none Additional information 18-year-old G2, P0 with IUP at 26 weeks and 6 days and history of cholestasis of currently receiving ursodiol twice a day was sent from the clinic when she was complaining of nausea and diarrhea for the last 4 days. She denies any fever or chills. She denies any sick contacts. Patient reports recently her ursodiol medication has been increased to twice a day due to continued itching. Bile acid has been drawn and is currently pending. Patient denies any leaking of fluid or vaginal bleeding or decreased movement. Objective Vital Signs Date Temp Pulse Resp B/P (MAP) Pulse Ox O2 O2 Flow FiO2 Time Delivery Rate 01/06/19 98.0 119/70 17:28 (86) Heart Rate: 130's Heart Rate Comments Appropriate for gestational age and category 1 Contractions: None Exam General appearance: Alert and oriented x4 appears to be in mild distress Abdomen: Soft, gravid, fundal height consider gestational age, no tenderness, no redness, no guarding, no rigidity NST: Appropriate for gestational age and category 1 BPP: 12/31 CHERYL: 9.3 Laboratory Tests Test 01/06/19 18:19 01/06/19 18:22 White Blood Count 10.3 10^3/ul Red Blood Count 4.05 10^6/ul Hemoglobin 11.0 g/dl Hematocrit 34.2 % Mean Corpuscular Volume 84.4 fl Mean Corpuscular Hemoglobin 27.2 pg Mean Corpuscular Hemoglobin Concent 32.2 g/dl Red Cell Distribution Width 12.7 % Platelet Count 242 10^3/UL Mean Platelet Volume 11.3 fl Immature Granulocytes % 1.300 % Neutrophils % 74.8 % Lymphocytes % 16.1 % Monocytes % 7.0 % Eosinophils % 0.5 % Basophils % 0.3 % Nucleated Red Blood Cells % 0.0 /100WBC Immature Granulocytes # 0.130 10^3/ul Neutrophils # 7.7 10^3/ul Lymphocytes # 1.7 10^3/ul Monocytes # 0.7 10^3/ul Eosinophils # 0.1 10^3/ul Basophils # 0.0 10^3/ul Nucleated Red Blood Cells # 0.0 10^3/ul Sodium Level 136 mmol/L Potassium Level 3.8 mmol/L Chloride Level 105 mmol/L Carbon Dioxide Level 22 mmol/L Anion Gap 9 Blood Urea Nitrogen 7 mg/dl Creatinine 0.50 mg/dl Est Glomerular Filtrat Rate mL/min > 60 mL/min Glucose Level 74 mg/dl Calcium Level 9.2 mg/dl Total Bilirubin 0.4 mg/dl Direct Bilirubin 0.00 mg/dl Indirect Bilirubin 0.4 mg/dl Aspartate Amino Transf (AST/SGOT) 22 IU/L Alanine Aminotransferase (ALT/SGPT) 27 IU/L Alkaline Phosphatase 91 IU/L Total Protein 7.3 g/dl Albumin 3.8 g/dl Globulin 3.50 g/dl Albumin/Globulin Ratio 1.08 Results/Medications Result Diagram: 01/06/19 1819 01/06/19 1822 Results 24 hrs Laboratory Tests Test 01/06/19 18:19 01/06/19 18:22 White Blood Count 10.3 Red Blood Count 4.05 L Hemoglobin 11.0 L Hematocrit 34.2 L Mean Corpuscular Volume 84.4 Mean Corpuscular Hemoglobin 27.2 L Mean Corpuscular Hemoglobin Concent 32.2 Red Cell Distribution Width 12.7 Platelet Count 242 Mean Platelet Volume 11.3 H Immature Granulocytes % 1.300 H Neutrophils % 74.8 H Lymphocytes % 16.1 L Monocytes % 7.0 Eosinophils % 0.5 Basophils % 0.3 Nucleated Red Blood Cells % 0.0 Immature Granulocytes # 0.130 H Neutrophils # 7.7 H Lymphocytes # 1.7 Monocytes # 0.7 Eosinophils # 0.1 Basophils # 0.0 Nucleated Red Blood Cells # 0.0 Sodium Level 136 Potassium Level 3.8 Chloride Level 105 Carbon Dioxide Level 22 Anion Gap 9 Blood Urea Nitrogen 7 Creatinine 0.50 Est Glomerular Filtrat Rate mL/min > 60 Glucose Level 74 Calcium Level 9.2 Total Bilirubin 0.4 Direct Bilirubin 0.00 Indirect Bilirubin 0.4 Aspartate Amino Transf (AST/SGOT) 22 Alanine Aminotransferase (ALT/SGPT) 27 Alkaline Phosphatase 91 Total Protein 7.3 Albumin 3.8 Globulin 3.50 H Albumin/Globulin Ratio 1.08 Imaging Results PROCEDURE: US OB biophysical profile. CLINICAL INDICATION: decreased movements, TECHNIQUE: Multiple sonographic images of the pelvis were obtained. The images were reviewed on a PACS workstation. COMPARISON: 01/03/19 FINDINGS: There is a single live intrauterine gestation. Cardiac activity is present with 148 beats per minute. There is a vertex presentation. The placenta is posterior. There is no evidence of placental abruption. CHERYL = 9.3 cm. Biophysical profile: movement 2/2 tone 2/2. breathing 2/2 CHERYL 2/2 Total 12/31 RPTAT: AA . IMPRESSION: Normal biophysical profile. Disposition: Discharge Assessment/Plan IUP at 26 weeks and 6 days History of cholestasis of , currently on ursodiol twice a day. Still symptomatic. Bile acids pending. Advised the patient to increase her supply to 3 times a day Nausea, vomiting and diarrhea, likely viral gastroenteritis. Patient reports symptoms presented prior to starting on her saline medication 3 days ago. Currently afebrile. Patient was advised regarding adequate hydration and expectant management with antiemetic Precaution was given to return to triage if she has any fever, chills, worsening of diarrhea, leaking of fluid, vaginal bleeding, decreased movement or for any other concerns Advised the patient to keep her appointments in 3 days for testing Patient verbalized understanding. All questions were answered to patient's best satisfaction. СЕРГЕЙ VERA MD Jan 07, 2019 14:49
== END 2019-01-06 20:42 | disposition home or self-care (01) ==
LOC: OBT 16:38 → L-D 16:40 → OBT 20:42
PROVIDERS: ATTEND Obstetrics & Gynecology
DX: O21.0 Mild hyperemesis gravidarum (principal); Z3A.26 26 weeks gestation of pregnancy; O26.892 Other specified pregnancy related conditions, second trimester; R19.7 Diarrhea, unspecified
CPT/HCPCS: 76818; 80053; 83789; 85025

== ENCOUNTER 2019-01-13 22:01 | Outpatient (CLI) | payer OTHER ==
[~2019-01-13] VITALS: Ht 149.9 cm; Wt 71.5 kg
[~2019-01-13 22:01] MED LIST changes: +ACET500C5 PO; +CIPR7.5D LEFT EAR; -CYCL10TA7 PO
[2019-01-13 22:21] VITALS: Ht 149.9 cm; Wt 71.5 kg
[2019-01-14] MEDS ORDERED: LACTATED RINGER'S 1,000 ML IV ONE (02:30)
[2019-01-14] MEDS ORDERED: ACETAMINOPHEN 500 MG TAB PO ONE (03:34)
[2019-01-14] MEDS ORDERED: AL HYDROX/MG HYDROX/SIMETH 30 ML CUP PO ONE (04:00)
== END 2019-01-14 04:25 | disposition home or self-care (01) ==
LOC: OBT 22:01 → L-D 22:02 → OBT 01-14 04:25
PROVIDERS: ATTEND Obstetrics & Gynecology
DX: O26.892 Other specified pregnancy related conditions, second trimester (principal); R10.9 Unspecified abdominal pain; Z3A.27 27 weeks gestation of pregnancy
CPT/HCPCS: 76815; 76817; 76818; 81001; 82731; 85025; 96360; J7120; Z7500; Z7610; G0463

== ENCOUNTER 2019-03-23 13:56 | Inpatient (IN) | payer OTHER ==
[~2019-03-23] VITALS: Ht 149.9 cm; Wt 70.1 kg
[~2019-03-23 13:56] MED LIST changes: -ACET500C5 PO; -CIPR7.5D LEFT EAR; +IBUP800T48 PO; -LABE100T7 PO; -URSO300C21 PO
[2019-03-23 14:03] VITALS: Ht 149.9 cm; Wt 70.1 kg
[2019-03-23 14:14] VITALS: BP 135/64; PULSE 116; RESP 20
[2019-03-23] MEDS ORDERED: LACTATED RINGER'S 1,000 ML IV PRN (17:56)
[2019-03-23] MEDS ORDERED: LACTATED RINGER'S 1,000 ML IV SCH (17:56)
[2019-03-23] MEDS ORDERED: OXYTOCIN 30 UNITS/LR 500 ML IV PRN (18:00)
[2019-03-23] MEDS ORDERED: MISOPROSTOL 200 MCG TAB PR PRN (18:00)
[2019-03-23] MEDS ORDERED: METHYLERGONOVINE 0.2 MG INJ IM PRN (18:00)
[2019-03-23] MEDS ORDERED: OXYTOCIN 30 UNITS/LR 500 ML IV SCH ×2 (18:00)
[2019-03-23] MEDS ORDERED: CARBOPROST 250 MCG INJ IM PRN (18:00)
[2019-03-23] MEDS ORDERED: MINERAL OIL LIGHT 10 ML VIAL TOP PRN (18:00)
[2019-03-23] MEDS ORDERED: LIDOCAINE 1% (MPF) 30 ML INJ INJ PRN (18:00)
[2019-03-23] MEDS: DIPHENHYDRAMINE 50 MG INJ IV PRN (22:09)
[2019-03-24] VITALS (9 sets, daily range): BP systolic 104–126; BP diastolic 56–76; PULSE 89–107; RESP 18–20
[2019-03-24] MEDS ORDERED: CARBOPROST 250 MCG INJ IM PRN (02:00)
[2019-03-24] MEDS ORDERED: MISOPROSTOL 200 MCG TAB PR PRN (02:00)
[2019-03-24] MEDS ORDERED: OXYTOCIN 30 UNITS/LR 500 ML IV SCH (02:00)
[2019-03-24] MEDS ORDERED: METHYLERGONOVINE 0.2 MG INJ IM PRN (02:00)
[2019-03-24] MEDS ORDERED: CLINDAMYCIN 900 MG (PMX) 50 ML IVPB SCH (02:00)
[2019-03-24] MEDS ORDERED: OXYTOCIN 30 UNITS/LR 500 ML IV PRN (02:00)
[2019-03-24] MEDS ORDERED: hydrOXYzine HCL 25 MG TAB PO ONE (02:30)
[2019-03-24] MEDS: LACTATED RINGER'S 1,000 ML IV SCH ×3 (05:05→17:45)
[2019-03-24] MEDS ORDERED: AZITHROMYCIN 500MG/NS (PMX) 250 ML IV SCH (08:00)
[2019-03-24] MEDS: DIPHENHYDRAMINE 50 MG INJ IV PRN (10:00)
[2019-03-24] MEDS ORDERED: ONDANSETRON 4 MG INJ IV STA (10:20)
[2019-03-24] MEDS ORDERED: FAMOTIDINE 20 MG INJ ONE (10:29)
[2019-03-24] MEDS ORDERED: CITRIC ACID/NA CITRATE 30 ML CUP ONE (10:29)
[2019-03-24] MEDS ORDERED: ONDANSETRON 4 MG INJ ONE (10:30)
[2019-03-24] MEDS ORDERED: CITRIC ACID/NA CITRATE 30 ML CUP PO ONE (10:30)
[2019-03-24] MEDS ORDERED: FENTAnyl 50 MCG/ML VIAL ONE (10:30)
[2019-03-24] MEDS ORDERED: FAMOTIDINE 20 MG INJ IV ONE (10:30)
[2019-03-24] MEDS ORDERED: METOCLOPRAMIDE 10 MG INJ ONE (10:58)
[2019-03-24] MEDS ORDERED: GENTAMICIN 80 MG/NS (PMX) 50 ML IVPB SCH (11:00)
[2019-03-24] MEDS ORDERED: PHENYLephrine (100 MCG/ML) 10ML SYG ONE (11:04)
[2019-03-24] MEDS ORDERED: EPHEDrine 25 MG/5 ML SYG ONE (11:04)
[2019-03-24] MEDS ORDERED: NALBUPHINE HCL (10 MG/1 ML) INJ IV PRN (11:30)
[2019-03-24] MEDS ORDERED: morphine 2 MG INJ IV PRN (11:30)
[2019-03-24] MEDS ORDERED: NALOXONE (0.4 MG/ML) INJ IV PRN (11:30)
[2019-03-24] MEDS ORDERED: ONDANSETRON 4 MG INJ IV PRN (11:30)
[2019-03-24] MEDS ORDERED: TRIMETHOBENZAMIDE 100 MG/ML VIAL IM PRN (11:30)
[2019-03-24] MEDS ORDERED: DIPHENHYDRAMINE 50 MG INJ IV PRN (11:30)
[2019-03-24] MEDS ORDERED: MAGNESIUM SULFATE 4 GM/100 ML 100 ML IVPB ONE (12:00)
[2019-03-24] MEDS: MAGNESIUM SULFATE 40GM/1000ML 1,000 ML IV SCH (12:33)
[2019-03-24] MEDS: KETOROLAC 30 MG INJ IV PRN ×2 (12:45→18:45)
[2019-03-24] MEDS: CLINDAMYCIN 900 MG (PMX) 50 ML IVPB SCH (17:22)
[2019-03-24] MEDS: morphine 2 MG INJ IV PRN ×2 (17:30→22:42)
[2019-03-24] MEDS: SENNA/DOCUSATE NA (8.6MG/50MG) TAB PO SCH (21:00)
[2019-03-25] VITALS (14 sets, daily range): BP systolic 97–129; BP diastolic 50–70; PULSE 65–100; RESP 16–86
[2019-03-25] MEDS: morphine 2 MG INJ IV PRN ×2 (02:53→08:55)
[2019-03-25] MEDS: CLINDAMYCIN 900 MG (PMX) 50 ML IVPB SCH ×2 (05:40)
[2019-03-25] MEDS: KETOROLAC 30 MG INJ IV PRN (05:55)
[2019-03-25] MEDS: LACTATED RINGER'S 1,000 ML IV SCH ×3 (08:22→17:08)
[2019-03-25] MEDS: MAGNESIUM SULFATE 40GM/1000ML 1,000 ML IV SCH (08:25)
[2019-03-25] MEDS: SENNA/DOCUSATE NA (8.6MG/50MG) TAB PO SCH ×2 (08:25→21:07)
[2019-03-25] MEDS: IBUPROFEN 600 MG TAB PO SCH ×2 (12:12→17:44)
[2019-03-25] MEDS: OXYCODONE/ACETAMINOPHEN (5/325) TAB PO PRN ×2 (12:13→17:44)
[2019-03-25] MEDS: FERROUS SULFATE (EC) 325 MG TAB PO SCH (21:00)
[2019-03-26] MEDS: IBUPROFEN 600 MG TAB PO SCH ×4 (00:22→17:36)
[2019-03-26 03:25] VITALS: BP 106/58; PULSE 76; RESP 19
[2019-03-26] MEDS: SENNA/DOCUSATE NA (8.6MG/50MG) TAB PO SCH ×2 (08:29→21:41)
[2019-03-26] MEDS: OXYCODONE/ACETAMINOPHEN (5/325) TAB PO PRN ×4 (08:29→21:41)
[2019-03-26 08:30] VITALS: BP 113/57; PULSE 69; RESP 18
[2019-03-26] MEDS: FERROUS SULFATE (EC) 325 MG TAB PO SCH ×3 (08:31→21:41)
[2019-03-26] MEDS: LACTATED RINGER'S 1,000 ML IV SCH (09:24)
[2019-03-26 15:15] VITALS: BP 102/58; PULSE 77; RESP 20
[2019-03-26 19:45] VITALS: BP 104/56; PULSE 81; RESP 20
[2019-03-27] MEDS: IBUPROFEN 600 MG TAB PO SCH ×4 (00:20→18:02)
[2019-03-27 03:55] VITALS: BP 108/67; PULSE 61; RESP 20
[2019-03-27 08:00] VITALS: BP 114/58; PULSE 82; RESP 18
[2019-03-27] MEDS: FERROUS SULFATE (EC) 325 MG TAB PO SCH ×3 (09:00→21:00)
[2019-03-27] MEDS: SENNA/DOCUSATE NA (8.6MG/50MG) TAB PO SCH ×2 (09:13→20:56)
[2019-03-27] MEDS: OXYCODONE/ACETAMINOPHEN (5/325) TAB PO PRN ×2 (09:13→15:45)
[2019-03-27] MEDS: ASCORBIC ACID 500 MG TAB PO SCH ×2 (12:30→20:56)
[2019-03-27 16:00] VITALS: BP 125/87; PULSE 78; RESP 18
[2019-03-27] MEDS ORDERED: oxyCODONE 15 MG TAB PO PRN (17:00)
[2019-03-27] MEDS ORDERED: oxyCODONE 5 MG TAB PO PRN ×2 (17:00)
[2019-03-27] MEDS ORDERED: BENZOCAINE 20% 56 ML SPRAY TOP PRN (17:00)
[2019-03-27] MEDS: ACETAMINOPHEN 500 MG TAB PO SCH (17:16)
[2019-03-27 20:46] VITALS: BP 107/57; PULSE 66; RESP 18
[2019-03-27] MEDS: GABAPENTIN 300 MG CAP PO SCH (20:56)
[2019-03-28] MEDS: IBUPROFEN 600 MG TAB PO SCH ×3 (00:30→12:33)
[2019-03-28] MEDS: ACETAMINOPHEN 500 MG TAB PO SCH ×2 (01:46→09:09)
[2019-03-28 04:45] VITALS: BP 118/76; PULSE 82; RESP 20
[2019-03-28 08:00] VITALS: BP 114/57; PULSE 87; RESP 16
[2019-03-28] MEDS: FERROUS SULFATE (EC) 325 MG TAB PO SCH (09:00)
[2019-03-28] MEDS: GABAPENTIN 300 MG CAP PO SCH ×2 (09:09→12:34)
[2019-03-28] MEDS: ASCORBIC ACID 500 MG TAB PO SCH (09:09)
[2019-03-28] MEDS: SENNA/DOCUSATE NA (8.6MG/50MG) TAB PO SCH (09:13)
== END 2019-03-28 13:10 | disposition home or self-care (01) | DRG 786 ==
LOC: L-D 13:56 → OBT 13:56 → L-D 17:48 → OBT 17:48 → L-D 19:09 → PP1 03-24 14:50
PROVIDERS: ADMIT Obstetrics & Gynecology; ATTEND Obstetrics & Gynecology
PROC: 3E033VJ Introduction of Other Hormone into Peripheral Vein, Percutaneous Approach (ICD-10-PCS; 2019-03-24)
PROC: 10D00Z1 Extraction of Products of Conception, Low, Open Approach (ICD-10-PCS; principal; 2019-03-24 09:00)
DX: O13.4 Gestational [pregnancy-induced] hypertension without significant proteinuria, complicating childbirth (principal); K83.1 Obstruction of bile duct; O14.94 Unspecified pre-eclampsia, complicating childbirth; O26.62 Liver and biliary tract disorders in childbirth; Z3A.37 37 weeks gestation of pregnancy; Z37.0 Single live birth
CPT/HCPCS: 76815; 76818; 80053; 80307; 81003; 83615; 83735; 84560; 85025; 85610; 85730; 86592; 86703; 86803; 86850; 86900; 86901; 87340; 99464; G0463; J0456; J1200; J1580; J1885; J2270; J2370; J2405; J2590; J2765; J3010; J7120